=== PATIENT | female | born 1935 | race Asian ===

== ENCOUNTER → 2018-04-24 08:33 | Outpatient (CLI) | payer MEDICARE, SELFPAY ==
[2018-04-24 12:35] LABS: Absolute Lymphocyte Count 1.39 X10^3/ul (0.83-4.51); Absolute Neutrophil Count 1.8 X10^3/uL (2.0-7.7); Basophil# 0.01 X10^3/uL; Basophil% 0.3 % (0-1); Eosinophil# 0.07 X10^3/uL; Hematocrit 42.3 % (37-47); Hemoglobin 14.5 g/dl (12.0-15.0); Lymphocyte # 1.39 X10^3/ul (4.0); Lymphocyte % 39.3 % (19-41); Mean Corp Hgb Conc 34.3 g/gl (32-36); Mean Corpuscular Hgb 31.2 pg (27.0-32.0); Mean Platelet Vol. 10.9 fl (6.2-12.0); Monocyte# 0.25 X10^3/uL; Monocyte% 7.1 % (0-10); Neutrophil # 1.81 X10^3/uL (2.7-7.7); Platelet Count 270 K/mm3 (150-450); RBC Distribution Width CV 13.8 % (11.6-14.6); RBC Distribution Width SD 45.5 fl (35.1-43.9); Red Blood Count 4.65 M/mm3 (4.2-5.4); White Blood Count 3.5 K/mm3 (4.4-11.0)
[2018-04-24 12:37] LABS: POSITIVE COUNT NO; POSITIVE DIFFERENTIAL NO; POSITIVE MORPHOLOGY NO
[2018-04-24 12:54] LABS: ALB/GLOB Ratio 0.9 RATIO (0.9-2.4); AST(SGOT) 16 U/L (15-37); Alanine Aminotransfer ALT/SGPT 26 U/L (13-56); Albumin, Serum 3.5 g/dL (3.2-5.0); Alkaline Phosphatase 77 U/L (45-117); Anion Gap 9 (5-15); BUN 19 mg/dL (7-18); BUN/Creat Ratio 27.2 RATIO (10-20); Chloride 107 mmol/L (98-107); EST Glomerular Filtration Rate 85 mL/min (>60); Est Glom Filt Rate - Afr Amer 103 mL/min (>60); Globulin 3.7 g/dL (2.2-4.2); Glucose 91 mg/dL (74-106); Protein, Total 7.2 g/dL (6.4-8.2); Sodium Level 141 mmol/L (136-145); Thyroid Stim Hormone (TSH) 2.58 uIU/mL (0.358-3.74)
== END ==
PROVIDERS: Family Provider Family Medicine Geriatric Medicine; PCP Family Medicine Geriatric Medicine; Visit Provider Family Medicine Geriatric Medicine
DX: E55.9 Vitamin D deficiency, unspecified (principal); I10 Essential (primary) hypertension
CPT/HCPCS: 36415; 80053; 82306; 84443; 85025

== ENCOUNTER → 2019-04-25 | Outpatient (CLI) | payer MEDICARE, SELFPAY ==
[2019-04-25 12:47] LABS: Absolute Neutrophil Count 2.2 X10^3/uL (2.0-7.7); Basophil# 0.01 X10^3/uL; Basophil% 0.2 % (0-1); Eosinophil# 0.04 X10^3/uL; Hematocrit 42.3 % (37-47); Hemoglobin 14.4 g/dl (12.0-15.0); Lymphocyte % 38.8 % (19-41); Mean Corpuscular Hgb 30.5 pg (27.0-32.0); Mean Corpuscular Volume 89.6 fL (81-99); Monocyte# 0.28 X10^3/uL; Monocyte% 6.8 % (0-10); Neutrophil # 2.18 X10^3/uL (2.7-7.7); Platelet Count 217 K/mm3 (150-450); RBC Distribution Width SD 45.4 fl (35.1-43.9); Red Blood Count 4.72 M/mm3 (4.2-5.4); White Blood Count 4.1 K/mm3 (4.4-11.0)
[2019-04-25 12:54] LABS: POSITIVE COUNT NO; POSITIVE DIFFERENTIAL NO; POSITIVE MORPHOLOGY NO
[2019-04-25 13:00] LABS: Vitamin D,25 Hydroxy 27.4 ng/mL (29.95-100.01)
[2019-04-25 13:17] LABS: ALB/GLOB Ratio 1.1 RATIO (0.9-2.4); AST(SGOT) 21 U/L (15-37); Alanine Aminotransfer ALT/SGPT 23 U/L (13-56); Albumin, Serum 3.5 g/dL (3.2-5.0); Alkaline Phosphatase 67 U/L (45-117); Anion Gap 6 (5-15); BUN 18 mg/dL (7-18); BUN/Creat Ratio 25.2 RATIO (10-20); Chloride 106 mmol/L (98-107); Creatinine, Serum 0.72 mg/dL (0.55-1.02); EST Glomerular Filtration Rate 83 mL/min (>60); Est Glom Filt Rate - Afr Amer 100 mL/min (>60); Globulin 3.1 g/dL (2.2-4.2); Glucose 115 mg/dL (74-106); Potassium 3.7 mmol/L (3.5-5.1); Protein, Total 6.6 g/dL (6.4-8.2); Sodium Level 138 mmol/L (136-145); Thyroid Stim Hormone (TSH) 2.15 uIU/mL (0.358-3.74)
== END | disposition home or self-care (01) ==
LOC: POLAB3 10:54
PROVIDERS: Family Provider Family Medicine Geriatric Medicine; PCP Family Medicine Geriatric Medicine; Visit Provider Family Medicine Geriatric Medicine
DX: E55.9 Vitamin D deficiency, unspecified (principal); I10 Essential (primary) hypertension
CPT/HCPCS: 36415; 80053; 82306; 84443; 85025

== ENCOUNTER → 2019-10-02 15:44 | Outpatient (CLI) | payer MEDICARE, SELFPAY | PROVIDERS: Family Provider Family Medicine Geriatric Medicine; PCP Family Medicine Geriatric Medicine; Referring Provider Family Medicine Geriatric Medicine; Visit Provider Family Medicine Geriatric Medicine | DX: R50.9 Fever, unspecified (principal) | CPT/HCPCS: 87633 ==

== ENCOUNTER → 2020-04-29 11:38 | Outpatient (CLI) | payer MEDICARE, SELFPAY ==
[2020-04-29 12:30] LABS: Absolute Lymphocyte Count 1.97 X10^3/uL (0.83-4.51); Absolute Neutrophil Count 2.2 X10^3/uL (2.0-7.7); Basophil# 0.03 X10^3/uL; Basophil% 0.6 % (0-1); Eosinophil# 0.04 X10^3/uL; Eosinophils% 0.9 % (0-5); Hematocrit 42.9 % (37-47); Hemoglobin 14.3 g/dL (12.0-15.0); Lymphocyte # 1.97 X10^3/ul (4.0); Lymphocyte % 42.6 % (19-41); Mean Corp Hgb Conc 33.3 g/dL (32-36); Mean Corpuscular Hgb 31.3 pg (27.0-32.0); Mean Corpuscular Volume 93.9 fL (81-99); Mean Platelet Vol. 11.1 fl (6.2-12.0); Monocyte# 0.35 X10^3/uL; Monocyte% 7.6 % (0-10); NRBC Flagged by Analyzer 0 % (0-5); Neutrophil # 2.21 X10^3/uL (2.7-7.7); Neutrophil % 47.9 % (47-70); Platelet Count 217 K/mm3 (150-450); RBC Distribution Width CV 13.5 % (11.6-14.6); RBC Distribution Width SD 45.4 fl (35.1-43.9); Red Blood Count 4.57 M/mm3 (4.2-5.4); White Blood Count 4.6 K/mm3 (4.4-11.0)
[2020-04-29 12:47] LABS: Vitamin D,25 Hydroxy 31.8 ng/mL
[2020-04-29 12:54] LABS: AST(SGOT) 17 U/L (15-37); Alanine Aminotransfer ALT/SGPT 23 U/L (13-56); Albumin, Serum 3.6 g/dL (3.2-5.0); Alkaline Phosphatase 76 U/L (45-117); Anion Gap 8 (5-15); BUN 20 mg/dL (7-18); BUN/Creat Ratio 30.5 RATIO (10-20); Calcium,Total 9.2 mg/dL (8.5-10.1); Chloride 104 mmol/L (98-107); Creatinine, Serum 0.66 mg/dL (0.55-1.02); EST Glomerular Filtration Rate 91 mL/min (>60); Est Glom Filt Rate - Afr Amer 110 mL/min (>60); Globulin 3.5 g/dL (2.2-4.2); Glucose 111 mg/dL (74-106); Potassium 3.9 mmol/L (3.5-5.1); Protein, Total 7.1 g/dL (6.4-8.2); Sodium Level 140 mmol/L (136-145); Thyroid Stim Hormone (TSH) 2.56 uIU/mL (0.358-3.74)
== END ==
PROVIDERS: PCP Family Medicine Geriatric Medicine; Visit Provider Family Medicine Geriatric Medicine
DX: I10 Essential (primary) hypertension (principal); E55.9 Vitamin D deficiency, unspecified
CPT/HCPCS: 36415; 80053; 82306; 84443; 85025

== ENCOUNTER → 2021-05-27 10:12 | Outpatient (CLI) | payer MEDICARE, SELFPAY ==
[2021-05-27 12:39] LABS: Absolute Lymphocyte Count 1.49 X10^3/uL (0.83-4.51); Absolute Neutrophil Count 2.4 X10^3/uL (2.0-7.7); Basophil# 0.01 X10^3/uL; Basophil% 0.2 % (0-1); Eosinophil# 0.06 X10^3/uL; Eosinophils% 1.4 % (0-5); Hematocrit 46.7 % (37-47); Hemoglobin 15.4 g/dL (12.0-15.0); Lymphocyte # 1.49 X10^3/ul (0.83-4.51); Mean Corpuscular Hgb 30.5 pg (27.0-32.0); Mean Corpuscular Volume 92.5 fL (81-99); Mean Platelet Vol. 10.4 fl (6.2-12.0); NRBC Flagged by Analyzer 0 % (0-5); Neutrophil # 2.39 X10^3/uL (2.7-7.7); Neutrophil % 56.2 % (47-70); Platelet Count 260 K/mm3 (150-450); RBC Distribution Width CV 13.9 % (11.6-14.6); Red Blood Count 5.05 M/mm3 (4.2-5.4); White Blood Count 4.3 K/mm3 (4.4-11.0)
[2021-05-27 12:54] LABS: Vitamin D,25 Hydroxy 46.3 ng/mL
[2021-05-27 13:02] LABS: ALB/GLOB Ratio 1.1 RATIO (0.9-2.4); AST(SGOT) 16 U/L (15-37); Alanine Aminotransfer ALT/SGPT 31 U/L (13-56); Albumin, Serum 3.8 g/dL (3.2-5.0); Alkaline Phosphatase 68 U/L (45-117); Anion Gap 8 (5-15); BUN 20 mg/dL (7-18); BUN/Creat Ratio 26.5 RATIO (10-20); Calcium,Total 9.2 mg/dL (8.5-10.1); Chloride 104 mmol/L (98-107); Creatinine, Serum 0.76 mg/dL (0.55-1.02); EST Glomerular Filtration Rate 77 mL/min (>60); Est Glom Filt Rate - Afr Amer 93 mL/min (>60); Globulin 3.4 g/dL (2.2-4.2); Glucose 115 mg/dL (74-106); Potassium 3.5 mmol/L (3.5-5.1); Protein, Total 7.2 g/dL (6.4-8.2); Sodium Level 140 mmol/L (136-145); Thyroid Stim Hormone (TSH) 2.95 uIU/mL (0.358-3.74)
== END ==
PROVIDERS: PCP Family Medicine Geriatric Medicine; Visit Provider Family Medicine Geriatric Medicine
DX: I10 Essential (primary) hypertension (principal); E55.9 Vitamin D deficiency, unspecified
CPT/HCPCS: 36415; 80053; 82306; 84443; 85025

== ENCOUNTER 2022-03-26 13:38 | Emergency (ER) | payer MEDICARE, SELFPAY ==
[2022-03-26 13:39] VITALS: BP 194/78; PULSE 63; RESP 15; TEMP 36.4; O2SAT 97; BMI 27.3
--- NOTE | 2022-03-26 13:50 | EKG12_ITS ---
Test Reason : DIZZINESS Blood Pressure : / mmHG Vent. Rate : 060 BPM Atrial Rate : 060 BPM P-R Int : 178 ms QRS Dur : 082 ms QT Int : 442 ms P-R-T Axes : 057 047 064 degrees QTc Int : 442 ms Normal sinus rhythm Nonspecific ST and T wave abnormality Abnormal ECG Confirmed by SIMA PALOMINO, WILBER ([id number]), design editor KEVIN CORTES ([id number]) on 03/29/2022 1:00:42 PM Referred By: Confirmed By:WILBER GAO MD
--- NOTE | 2022-03-26 13:54 | CT_ITS ---
STUDY: CT BRAIN WITHOUT CONTRAST REASON FOR EXAM: Female, 86 years old. Vertigo RADIATION DOSAGE (If Supplied By Facility): CTDIvol = ( 47.06 ) mGy, DLP = ( 819.74 ) mGycm TECHNIQUE: Transaxial CT imaging of the brain was performed without administration of intravenous contrast material. Individualized dose optimization techniques were used for this CT. COMPARISON: No relevant priors. FINDINGS: Normal soft tissue structures. Normal calvarium. There is mild cerebral atrophy with widening of the extra-axial spaces and ventricular dilatation. Normal white matter tracts of the cerebral hemispheres. There are small punctate calcifications of the basal ganglia which are seen in the aging brain as a normal variant. Normal brainstem. Normal cerebellum. There is no intracranial hemorrhage. There are no findings of an acute ischemic infarction. Atherosclerotic plaque formation of the cavernous portions of the internal carotid arteries bilaterally. Normal visualized paranasal sinuses. CT/Brain/Head without Contrast IMPRESSION: Chronic involutional changes of the brain. Electronically Signed: Pop Mann MD at 16:13 EDT ,
--- NOTE | 2022-03-26 13:55 | EDS_ITS ---
HPI <JANELLE Orta - Last Filed: 03/26/22 16:23> History of Present Illness Chief Complaint: Dizziness Narrative Narrative: 86-year-old female with history of hypertension presents to the emergency department with complaints of dizziness after waking up this morning. Patient states that she felt dizzy, unsteady, it was better when she closed her eyes. Due to this, she felt nauseous and did not take her daily blood pressure medicines. Patient did arrive by EMS, patient denies any weakness to her upper or lower extremities. She denies any actual vomiting, fever or chills. Denies any injury. [facility] <JANELLE Orta - Last Filed: 03/26/22 16:23> [facility] Medical History (Updated 03/26/22 @ 16:19 by JANELLE Orta) HTN (hypertension) Home Medications cholecalciferol (vitamin D3) [Vitamin D3] 25 mcg PO DAILY 03/26/22 [History Last Taken Unknown] hydrochlorothiazide 25 mg PO DAILY 03/26/22 [History Last Taken Unknown] meclizine [Antivert] 25 mg PO DAILY PRN #14 tab 03/26/22 [Rx Last Taken Unknown] ondansetron 4 mg PO Q8H PRN #10 tab 03/26/22 [Rx Last Taken Unknown] ramipril 10 mg PO DAILY 03/26/22 [History Last Taken Unknown] Allergy/AdvReac Type Severity Reaction Status Date / Time No Known Allergies Allergy Verified 03/26/22 13:39 Social History Smoking Status: Never smoker ROS <JANELLE Orta - Last Filed: 03/26/22 16:23> ROS ED ROS Narrative Constitutional: Negative for fever, chills, weight loss, weakness Eyes: Negative for vision loss, vision change, double vision ENT: Negative for any sore throat, ear pain, congestion Cardiovascular: Negative for any chest pain, tightness, palpitations Respiratory: Negative for any cough, sputum production, hemoptysis, dyspnea, dyspnea on exertion, orthopnea Gastrointestinal: Negative for any abdominal pain, nausea, vomiting, diarrhea, constipation, blood in stool, blood in vomit : Negative for any urinary frequency, dysuria, retention, blood in urine Muscle skeletal: Negative for any muscle joint pain, stiffness, myalgias, arthralgias, neck pain, back pain Neurological: Negative for any headache, syncope, numbness or tingling. Positive for a feeling of dizziness, unsteady Skin: Negative for any rashes, lumps, itching, abrasions, lacerations Psychiatric: Negative for any depression, anxiety, stress, suicidal ideation, homicidal ideation Hematologic: Negative for any easy bruising, excessive bruising, easy bleeding Allergies: Negative for any eczema, hives, rash EXAM <JANELLE Orta - Last Filed: 03/26/22 16:23> Physical Exam Narrative Exam Narrative: Vital signs reviewed. Blood pressure 197/74. Patient is alert and oriented. Patient closes her eyes stating any position change of her head makes her dizziness worse. HEET: Head normocephalic atraumatic, TMs clear bilaterally. Posterior pharynx is clear, moist mucous membranes. Nares clear bilaterally. Neck: Supple with no lymphadenopathy or tenderness. No signs of meningismus, negative jolt sign. Cardiac: Regular rate and rhythm no murmurs gallops or rubs, equal peripheral pulses bilaterally. Respiratory: Lungs clear to auscultation bilaterally. No chest tenderness. Abdomen: Soft, nontender, nondistended. No abdominal bruit or pulsatile masses. No hepatosplenomegaly Extremities: No peripheral edema, no signs of gross trauma or deformity. Active full range of motion of all extremities. Neuro: Cranial nerves II through XII intact, no focal neurological deficits. NIH score 0. [place]-Hallpike maneuver was completed, patient did have horizontal nystagmus Skin: Clean dry and intact with no rash, purpura, petechiae, vesicles or pustules. Backs/flank: No CVA tenderness, no midline spinal tenderness, no deformity. Psych: Normal mood and affect. No SI, HI or acute psychosis. Const Vital Signs: 03/26/22 13:39 03/26/22 14:59 03/26/22 16:13 Temperature 97.5 F L Temperature Source Temporal Pulse Rate 63 62 67 Respiratory Rate 15 16 14 Blood Pressure 194/78 H 175/68 H 187/84 H Blood Pressure Mean 116 103 118 Pulse Ox 97 94 94 Oxygen Delivery Method Room Air Room Air Room Air Positive well nourished and well developed General Appearance ED: well developed <Dr. Candido Richard MD - Last Filed: 03/26/22 16:18> Physical Exam Const Vital Signs: 03/26/22 13:39 03/26/22 14:59 03/26/22 16:13 Temperature 97.5 F L Temperature Source Temporal Pulse Rate 63 62 67 Respiratory Rate 15 16 14 Blood Pressure 194/78 H 175/68 H 187/84 H Blood Pressure Mean 116 103 118 Pulse Ox 97 94 94 Oxygen Delivery Method Room Air Room Air Room Air [facility] <Rafiq Saucedo NPAlexC - Last Filed: 03/26/22 16:23> [facility] Narrative Medical decision making narrative: Patient appears well, patient appears nontoxic, vital signs are stable. Patient presents to the emergency department with complaints of elevated blood pressure, dizziness of feeling of spinning. Patient's physical examination was consistent with peripheral vertigo. However patient received a CT scan of the brain, basic labs she was given her morning routine blood pressure medicines as well as meclizine and Zofran. She will be reassessed. Patient presents emergency department patient with a feeling of dizziness, nausea. Patient CBC, chemistries were unremarkable. Patient's urinalysis was negative for any infection. Patient's troponin was negative. Patient's EKG was unremarkable. Patient did receive a CT scan of the brain, this was unremarkable. Patient was able to walk around the department with a steady gait. Patient still feels slightly dizzy. Should be given a prescription of Zofran as well as Antivert. Instructed to follow-up outpatient. At this time I do not believe there is any evidence of any CVA, TIA. Patient be diagnosed with benign peripheral positional vertigo. Patient will follow up outpatient strict return for any worsening nausea, vomiting, fever chills. Patient stable for discharge Lab Data Attestation: I reviewed the patient's lab results. Labs: Laboratory Results - last 24 hr 03/26/22 03/26/22 03/26/22 14:00 14:00 14:30 WBC 5.4 RBC 4.73 Hgb 14.7 Hct 43.3 MCV 91.5 MCH 31.1 MCHC 33.9 RDW Std Deviation 45.4 H RDW Coeff of Terry 13.3 Plt Count 221 MPV 10.6 Immature Gran % (Auto) 0.400 Neut % (Auto) 72.6 H Lymph % (Auto) 21.4 Rich % (Auto) 4.6 Eos % (Auto) 0.4 Baso % (Auto) 0.6 Absolute Neuts (auto) 4.0 Absolute Lymphs (auto) 1.16 Nucleated RBC % 0 Sodium 139 Potassium 3.4 L Chloride 106 Carbon Dioxide 26.0 Anion Gap 7 BUN 13 Creatinine 0.55 Estim Creat Clear Calc 28.47 Est GFR (MDRD) Af Amer 134 Est GFR (MDRD) Non-Af 111 BUN/Creatinine Ratio 23.6 H Glucose 145 H Calcium 9.0 Troponin I High Sens 5 Urine Color Yellow Urine Clarity Sl. Cloudy Urine pH 8.0 Ur Specific [place] 1.015 Urine Protein Negative Urine Glucose (UA) Normal Urine Ketones Negative Urine Occult Blood Negative Urine Nitrite Negative Urine Bilirubin Negative Urine Urobilinogen Normal Ur Leukocyte Esterase 25 H Urine RBC 0 SEEN Urine WBC 0-5 SEEN Ur Squamous Epith Cells 0-5 SEEN Amorphous Sediment 1+ Urine Bacteria RARE Urine Mucus 0 SEEN Radiography Diagnostic Testing: Clinical Impression(s) from Imaging Studies Brain CT 03/26/22 13:54 IMPRESSION: Chronic involutional changes of the brain. Electronically Signed: Pop Mann MD at 16:13 EDT , EKG Normal sinus rhythm with a 60 beats: Attestation: I personally reviewed and interpreted this EKG as follows: Comments: Normal sinus rhythm, rate of 60 bpm, [place] interval 178 ms, QRS duration 80 ms, no acute ST elevation, no acute infarct noted <Dr. Candido Richard MD - Last Filed: 03/26/22 16:18> [facility] Narrative Medical decision making narrative: I have personally performed a face to face assessment of the patient and have reviewed the DELISA Note. I performed a substantive portion of the visit including all aspects of the following. My sanchez findings include: History: Patient tells me that about 3 hours after getting up she started to feel nauseated. She states she does not really think now that she was dizzy. She does not think she was unstable. She states it does not bother her now to move her head. It sounds like before she was seen there was a clear vertigo component but she is denying this to me now. She states she just had nausea. No fevers chills vomiting diarrhea or abdominal pain. She does not know why she was nauseated. She has been feeling fine recently. She is overall healthy. She takes vitamins D and medications for high blood pressure. She did not take these because she was nauseated this morning. Nothing really made her symptoms better or worse. Exam: Patient awake alert. When I walk in the room she has her flip phone cell phone open and she is reading items on it. I have her turn her head left right move around she has no symptoms at all. She has a normal neurologic exam. No discoordination. No weakness or sensory changes. I am getting no nystagmus with head motion now. Lungs are clear. Heart is regular. Abdomen is benign. There is no CVA tenderness. No peripheral edema. Medical Decison Making: Patient will have metabolic work-up. Because there is slight change in her story, we will err on the side of caution and get CT of her head also. She will be reassessed after results are back. We will get her her blood pressure meds. She will also get a dose of Zofran. We will also give a dose of meclizine. We have been trying to get results for CT on this patient. We have CT scans on multiple patients that we do not have readings for. I have looked at these images. We are contacting the radiology services. We have done this multiple times now. Evidently it appears as though the images might be read but nobody can access the actual reading. We are trying to get these results faxed to us. We have made multiple calls as have the radiology techs here trying to solve this problem. Lab Data Labs: Laboratory Results - last 24 hr 03/26/22 03/26/22 03/26/22 14:00 14:00 14:30 WBC 5.4 RBC 4.73 Hgb 14.7 Hct 43.3 MCV 91.5 MCH 31.1 MCHC 33.9 RDW Std Deviation 45.4 H RDW Coeff of Terry 13.3 Plt Count 221 MPV 10.6 Immature Gran % (Auto) 0.400 Neut % (Auto) 72.6 H Lymph % (Auto) 21.4 Rich % (Auto) 4.6 Eos % (Auto) 0.4 Baso % (Auto) 0.6 Absolute Neuts (auto) 4.0 Absolute Lymphs (auto) 1.16 Nucleated RBC % 0 Sodium 139 Potassium 3.4 L Chloride 106 Carbon Dioxide 26.0 Anion Gap 7 BUN 13 Creatinine 0.55 Estim Creat Clear Calc 28.47 Est GFR (MDRD) Af Amer 134 Est GFR (MDRD) Non-Af 111 BUN/Creatinine Ratio 23.6 H Glucose 145 H Calcium 9.0 Troponin I High Sens 5 Urine Color Yellow Urine Clarity Sl. Cloudy Urine pH 8.0 Ur Specific [place] 1.015 Urine Protein Negative Urine Glucose (UA) Normal Urine Ketones Negative Urine Occult Blood Negative Urine Nitrite Negative Urine Bilirubin Negative Urine Urobilinogen Normal Ur Leukocyte Esterase 25 H Urine RBC 0 SEEN Urine WBC 0-5 SEEN Ur Squamous Epith Cells 0-5 SEEN Amorphous Sediment 1+ Urine Bacteria RARE Urine Mucus 0 SEEN Radiography Diagnostic Testing: Clinical Impression(s) from Imaging Studies Brain CT 03/26/22 13:54 IMPRESSION: Chronic involutional changes of the brain. Electronically Signed: Pop Mann MD at 16:13 EDT , Discharge Plan Triage Chief Complaint: Dizziness Other Complaint: Nausea/Vomiting ED Midlevel Provider: Rafiq Saucedo ED Provider: Candido Richard Dx/Rx/DC Orders Clinical Impression: Vertigo Instructions: ED BPV Vertigo Prescriptions: New meclizine [Antivert] 25 mg tablet,chewable 25 mg PO DAILY PRN (Reason: dizziness) Qty: 14 RF: 0 ondansetron 4 mg tablet,disintegrating 4 mg PO Q8H PRN (Reason: nausea and vomiting) Qty: 10 RF: 0 No Action hydrochlorothiazide 25 mg Tablet 25 mg PO DAILY RF: 0 ramipril 10 mg Capsule 10 mg PO DAILY RF: 0 cholecalciferol (vitamin D3) [Vitamin D3] 25 mcg (1,000 unit) Tablet,Chewable 25 mcg PO DAILY RF: 0 Primary Care Provider: Sawyer Pickett Chi Referrals: Sawyer Pickett Chi, MD [Primary Care Provider] - Activity Restrictions/Additional Instructions: You are being treated for benign positional vertigo. Please rest today. Use Antivert and nausea medication as needed Print Language: Bulgarian Disposition Disposition: Home, Self Care
[2022-03-26] MEDS: Meclizine HCl 25 MG Tablet PO (14:03)
[2022-03-26] MEDS: Ondansetron 4 MG/2 ML Vial IV (14:03)
[2022-03-26 14:06] LABS: Absolute Lymphocyte Count 1.16 X10^3/uL (0.83-4.51); Basophil# 0.03 X10^3/uL; Basophil% 0.6 % (0-1); Eosinophil# 0.02 X10^3/uL; Eosinophils% 0.4 % (0-5); Hematocrit 43.3 % (37-47); Hemoglobin 14.7 g/dL (12.0-15.0); Lymphocyte # 1.16 X10^3/ul (0.83-4.51); Lymphocyte % 21.4 % (19-41); Mean Corp Hgb Conc 33.9 g/dL (32-36); Mean Corpuscular Hgb 31.1 pg (27.0-32.0); Mean Corpuscular Volume 91.5 fL (81-99); Mean Platelet Vol. 10.6 fl (6.2-12.0); Monocyte# 0.25 X10^3/uL; Monocyte% 4.6 % (0-10); NRBC Flagged by Analyzer 0 % (0-5); Neutrophil # 3.95 X10^3/uL (2.7-7.7); Neutrophil % 72.6 % (47-70); Platelet Count 221 K/mm3 (150-450); RBC Distribution Width CV 13.3 % (11.6-14.6); RBC Distribution Width SD 45.4 fl (35.1-43.9); Red Blood Count 4.73 M/mm3 (4.2-5.4); White Blood Count 5.4 K/mm3 (4.4-11.0)
[2022-03-26 14:22] LABS: Anion Gap 7 (5-15); BUN 13 mg/dL (7-18); BUN/Creat Ratio 23.6 RATIO (10-20); Chloride 106 mmol/L (98-107); Creatinine, Serum 0.55 mg/dL (0.55-1.02); EST Glomerular Filtration Rate 111 mL/min (>60); Est Glom Filt Rate - Afr Amer 134 mL/min (>60); Estimated Creatinine Clearance 28.47 ml/min; Glucose 145 mg/dL (74-106); Potassium 3.4 mmol/L (3.5-5.1); Sodium Level 139 mmol/L (136-145); Troponin-I HS 5 pg/mL (3.0-54.0)
[2022-03-26] MEDS: hydroCHLOROthiazide 25 MG Tablet PO (14:29)
[2022-03-26] MEDS: Ramipril 10 MG Capsule PO (14:29)
[2022-03-26 14:38] LABS: Mucous, Urine 0 SEEN /hpf (<or=2+); Red Blood Cells-Urine 0 SEEN /hpf (0-5)
[2022-03-26 14:40] LABS: Color, Urine Yellow (Yellow); Glucose, Dipstick Normal (Normal); Ketone-Dipstick Negative (Negative); Leukocyte Esterase-Dipstick 25 /ul (Negative); Nitrite-Dipstick Negative (Negative); Occult Blood-Urine Negative /ul (Negative); Protein-Dipstick Negative (Negative); Specific Gravity, Urine 1.015 (1.002-1.030); Urine Bilirubin Dipstick Negative (Negative); Urine Clarity Sl. Cloudy (Clear); Urine Urobilinogen Normal (Normal)
[2022-03-26 14:46] LABS: Amorphous Sediment 1+; Bacteria RARE /hpf (None Seen); Squamous Epithelial Cells - UA 0-5 SEEN /hpf (5-10); White Blood Cells 0-5 SEEN /hpf (0-5)
[2022-03-26 14:59] VITALS: BP 175/68; PULSE 62; RESP 16; O2SAT 94
[2022-03-26 16:13] VITALS: BP 187/84; PULSE 67; RESP 14; O2SAT 94
[2022-03-26 16:51] VITALS: BP 182/79; PULSE 63; RESP 14; O2SAT 95
== END 2022-03-26 16:51 | disposition home or self-care (01) ==
PROVIDERS: Nurse Practitioner; Emergency Provider Emergency Medicine; PCP Family Medicine Geriatric Medicine; Visit Provider Emergency Medicine
DX: R42 Dizziness and giddiness (principal); I10 Essential (primary) hypertension; Z79.899 Other long term (current) drug therapy
CPT/HCPCS: 70450; 80048; 81001; 84484; 85025; 93005; 96374; 99285; J2405

== ENCOUNTER → 2022-06-07 | Outpatient (CLI) | payer MEDICARE, SELFPAY ==
[2022-06-07 11:36] LABS: Absolute Lymphocyte Count 1.52 X10^3/uL (0.83-4.51); Basophil# 0.01 X10^3/uL; Basophil% 0.2 % (0-1); Eosinophil# 0.03 X10^3/uL; Eosinophils% 0.6 % (0-5); Hematocrit 45.9 % (37-47); Hemoglobin 15.2 g/dL (12.0-15.0); Lymphocyte # 1.52 X10^3/ul (0.83-4.51); Lymphocyte % 31.3 % (19-41); Mean Corp Hgb Conc 33.1 g/dL (32-36); Mean Corpuscular Hgb 30.6 pg (27.0-32.0); Mean Corpuscular Volume 92.5 fL (81-99); Mean Platelet Vol. 11.1 fl (6.2-12.0); Monocyte% 6.2 % (0-10); NRBC Flagged by Analyzer 0 % (0-5); Neutrophil # 2.97 X10^3/uL (2.7-7.7); Neutrophil % 61.1 % (47-70); Platelet Count 229 K/mm3 (150-450); RBC Distribution Width CV 13.5 % (11.6-14.6); RBC Distribution Width SD 45.9 fl (35.1-43.9); Red Blood Count 4.96 M/mm3 (4.2-5.4); White Blood Count 4.9 K/mm3 (4.4-11.0)
[2022-06-07 12:33] LABS: Vitamin D,25 Hydroxy 45.6 ng/mL
[2022-06-07 13:11] LABS: AST(SGOT) 17 U/L (15-37); Alanine Aminotransfer ALT/SGPT 25 U/L (13-56); Albumin, Serum 3.6 g/dL (3.2-5.0); Alkaline Phosphatase 70 U/L (45-117); Anion Gap 7 (5-15); BUN 17 mg/dL (7-18); Chloride 106 mmol/L (98-107); Creatinine, Serum 0.68 mg/dL (0.55-1.02); EST Glomerular Filtration Rate 87 mL/min (>60); Est Glom Filt Rate - Afr Amer 105 mL/min (>60); Globulin 3.6 g/dL (2.2-4.2); Glucose 105 mg/dL (74-106); Potassium 3.4 mmol/L (3.5-5.1); Protein, Total 7.2 g/dL (6.4-8.2); Sodium Level 140 mmol/L (136-145); Thyroid Stim Hormone (TSH) 1.99 uIU/mL (0.358-3.74)
== END | disposition home or self-care (01) ==
PROVIDERS: PCP Family Medicine Geriatric Medicine; Referring Provider Family Medicine Geriatric Medicine; Visit Provider Family Medicine Geriatric Medicine
DX: I10 Essential (primary) hypertension (principal); E55.9 Vitamin D deficiency, unspecified
CPT/HCPCS: 36415; 80053; 82306; 84443; 85025

== ENCOUNTER → 2023-01-26 | Outpatient (CLI) | payer MEDICARE, SELFPAY ==
[2023-01-26 13:29] LABS: Absolute Lymphocyte Count 1.95 X10^3/uL (0.83-4.51); Absolute Neutrophil Count 3.4 X10^3/uL (2.0-7.7); Basophil# 0.02 X10^3/uL; Basophil% 0.3 % (0-1); Eosinophil# 0.03 X10^3/uL; Eosinophils% 0.5 % (0-5); Hematocrit 48.1 % (37-47); Lymphocyte # 1.95 X10^3/ul (0.83-4.51); Lymphocyte % 33.8 % (19-41); Mean Corp Hgb Conc 33.3 g/dL (32-36); Mean Corpuscular Hgb 30.6 pg (27.0-32.0); Mean Platelet Vol. 11.1 fl (6.2-12.0); Monocyte# 0.35 X10^3/uL; Monocyte% 6.1 % (0-10); NRBC Flagged by Analyzer 0 % (0-5); Neutrophil # 3.41 X10^3/uL (2.7-7.7); Neutrophil % 59.1 % (47-70); Platelet Count 264 K/mm3 (150-450); RBC Distribution Width CV 13.3 % (11.6-14.6); RBC Distribution Width SD 45.1 fl (35.1-43.9); Red Blood Count 5.23 M/mm3 (4.2-5.4); White Blood Count 5.8 K/mm3 (4.4-11.0)
[2023-01-26 13:58] LABS: AST(SGOT) 17 U/L (15-37); Alanine Aminotransfer ALT/SGPT 26 U/L (13-56); Albumin, Serum 3.6 g/dL (3.2-5.0); Alkaline Phosphatase 84 U/L (45-117); Anion Gap 10 (5-15); BUN 16 mg/dL (7-18); BUN/Creat Ratio 22.4 RATIO (10-20); Calcium,Total 10.8 mg/dL (8.5-10.1); Chloride 102 mmol/L (98-107); Creatinine, Serum 0.71 mg/dL (0.55-1.02); EST Glomerular Filtration Rate 82 mL/min (>60); Est Glom Filt Rate - Afr Amer 99 mL/min (>60); Globulin 3.7 g/dL (2.2-4.2); Glucose 178 mg/dL (74-106); Potassium 3.2 mmol/L (3.5-5.1); Protein, Total 7.3 g/dL (6.4-8.2); Sodium Level 137 mmol/L (136-145); Syphilis Antibodies Non-reactive; Thyroid Stim Hormone (TSH) 3.17 uIU/mL (0.358-3.74); Vitamin B12 242 pg/mL (211-911)
== END | disposition home or self-care (01) ==
PROVIDERS: PCP Family Medicine Geriatric Medicine; Visit Provider Family Medicine Geriatric Medicine
DX: I10 Essential (primary) hypertension (principal)
CPT/HCPCS: 36415; 80053; 82607; 82746; 84443; 85025; 86780

== ENCOUNTER → 2023-02-05 | Outpatient (CLI) | payer MEDICARE, SELFPAY ==
[2023-02-05 10:38] LABS: Homocysteine 4.4 umol/L (3.2-10.7)
[2023-02-05 11:07] LABS: ALB/GLOB Ratio 1.1 RATIO (0.9-2.4); AST(SGOT) 14 U/L (15-37); Alanine Aminotransfer ALT/SGPT 21 U/L (13-56); Albumin, Serum 3.5 g/dL (3.2-5.0); Alkaline Phosphatase 84 U/L (45-117); Anion Gap 5 (5-15); BUN 18 mg/dL (7-18); BUN/Creat Ratio 27.4 RATIO (10-20); Calcium,Total 8.8 mg/dL (8.5-10.1); Chloride 112 mmol/L (98-107); Creatinine, Serum 0.66 mg/dL (0.55-1.02); EST Glomerular Filtration Rate 90 mL/min (>60); Est Glom Filt Rate - Afr Amer 109 mL/min (>60); Globulin 3.2 g/dL (2.2-4.2); Glucose 134 mg/dL (74-106); Potassium 3.8 mmol/L (3.5-5.1); Protein, Total 6.7 g/dL (6.4-8.2); Sodium Level 139 mmol/L (136-145)
[2023-02-05 12:34] LABS: Hemoglobin A1c 6.5 % (3.8-5.6)
== END | disposition home or self-care (01) ==
LOC: LAB 09:36
PROVIDERS: PCP Family Medicine Geriatric Medicine; Referring Provider Family Medicine Geriatric Medicine; Visit Provider Family Medicine Geriatric Medicine
DX: E53.8 Deficiency of other specified B group vitamins (principal); E72.11 Homocystinuria; R73.9 Hyperglycemia, unspecified; E87.6 Hypokalemia
CPT/HCPCS: 36415; 80053; 83036; 83090

== ENCOUNTER → 2023-06-29 | Outpatient (CLI) | payer MEDICARE, SELFPAY ==
[2023-06-29 18:19] LABS: Absolute Lymphocyte Count 1.84 X10^3/uL (0.83-4.51); Absolute Neutrophil Count 2.2 X10^3/uL (2.0-7.7); Basophil# 0.02 X10^3/uL; Basophil% 0.5 % (0-1); Eosinophil# 0.05 X10^3/uL; Eosinophils% 1.1 % (0-5); Hematocrit 41.7 % (37-47); Hemoglobin 14.1 g/dL (12.0-15.0); Lymphocyte # 1.84 X10^3/ul (0.83-4.51); Lymphocyte % 41.8 % (19-41); Mean Corp Hgb Conc 33.8 g/dL (32-36); Mean Corpuscular Hgb 31.1 pg (27.0-32.0); Mean Corpuscular Volume 92.1 fL (81-99); Mean Platelet Vol. 10.7 fl (6.2-12.0); Monocyte# 0.25 X10^3/uL; Monocyte% 5.7 % (0-10); NRBC Flagged by Analyzer 0 % (0-5); Neutrophil # 2.23 X10^3/uL (2.7-7.7); Neutrophil % 50.7 % (47-70); Platelet Count 225 K/mm3 (150-450); RBC Distribution Width CV 13.3 % (11.6-14.6); RBC Distribution Width SD 45.1 fl (35.1-43.9); Red Blood Count 4.53 M/mm3 (4.2-5.4); White Blood Count 4.4 K/mm3 (4.4-11.0)
[2023-06-29 18:29] LABS: Vitamin D,25 Hydroxy 37.1 ng/mL
[2023-06-29 18:48] LABS: AST(SGOT) 17 U/L (15-37); Alanine Aminotransfer ALT/SGPT 25 U/L (13-56); Albumin, Serum 3.3 g/dL (3.2-5.0); Alkaline Phosphatase 87 U/L (45-117); Anion Gap 7 (5-15); BUN 15 mg/dL (7-18); BUN/Creat Ratio 23.3 RATIO (10-20); Calcium,Total 8.9 mg/dL (8.5-10.1); Chloride 109 mmol/L (98-107); Creatinine, Serum 0.64 mg/dL (0.55-1.02); EST Glomerular Filtration Rate 92 mL/min (>60); Est Glom Filt Rate - Afr Amer 112 mL/min (>60); Globulin 3.4 g/dL (2.2-4.2); Glucose 108 mg/dL (74-106); Potassium 3.7 mmol/L (3.5-5.1); Protein, Total 6.7 g/dL (6.4-8.2); Sodium Level 141 mmol/L (136-145); Thyroid Stim Hormone (TSH) 1.52 uIU/mL (0.358-3.74)
== END | disposition home or self-care (01) ==
LOC: POLAB3 16:28
PROVIDERS: PCP Family Medicine Geriatric Medicine; Visit Provider Family Medicine Geriatric Medicine
DX: I10 Essential (primary) hypertension (principal); E55.9 Vitamin D deficiency, unspecified
CPT/HCPCS: 36415; 80053; 82306; 84443; 85025

== ENCOUNTER → 2023-12-28 | Outpatient (CLI) | payer MEDICARE, BC, SELFPAY ==
[2023-12-28 17:32] LABS: Absolute Lymphocyte Count 1.93 X10^3/uL (0.83-4.51); Absolute Neutrophil Count 2.8 X10^3/uL (2.0-7.7); Basophil# 0.03 X10^3/uL; Basophil% 0.6 % (0-1); Eosinophil# 0.03 X10^3/uL; Eosinophils% 0.6 % (0-5); Hematocrit 41.9 % (37-47); Lymphocyte # 1.93 X10^3/ul (0.83-4.51); Lymphocyte % 37.4 % (19-41); Mean Corp Hgb Conc 33.4 g/dL (32-36); Mean Corpuscular Hgb 29.9 pg (27.0-32.0); Mean Corpuscular Volume 89.5 fL (81-99); Mean Platelet Vol. 10.5 fl (6.2-12.0); Monocyte# 0.33 X10^3/uL; Monocyte% 6.4 % (0-10); NRBC Flagged by Analyzer 0 % (0-5); Neutrophil # 2.83 X10^3/uL (2.7-7.7); Neutrophil % 54.8 % (47-70); Platelet Count 244 K/mm3 (150-450); RBC Distribution Width CV 13.6 % (11.6-14.6); Red Blood Count 4.68 M/mm3 (4.2-5.4); White Blood Count 5.2 K/mm3 (4.4-11.0)
[2023-12-28 17:52] LABS: Vitamin D,25 Hydroxy 32.4 ng/mL
[2023-12-28 18:22] LABS: ALB/GLOB Ratio 1.1 RATIO (0.9-2.4); AST(SGOT) 20 U/L (15-37); Alanine Aminotransfer ALT/SGPT 28 U/L (13-56); Albumin, Serum 3.6 g/dL (3.2-5.0); Alkaline Phosphatase 80 U/L (45-117); Anion Gap 6 (5-15); BUN 12 mg/dL (7-18); BUN/Creat Ratio 18.2 RATIO (10-20); Calcium,Total 9.1 mg/dL (8.5-10.1); Chloride 109 mmol/L (98-107); Creatinine, Serum 0.66 mg/dL (0.55-1.02); EST Glomerular Filtration Rate 90 mL/min (>60); Est Glom Filt Rate - Afr Amer 108 mL/min (>60); Globulin 3.3 g/dL (2.2-4.2); Glucose 108 mg/dL (74-106); Potassium 3.7 mmol/L (3.5-5.1); Protein, Total 6.9 g/dL (6.4-8.2); Sodium Level 140 mmol/L (136-145); Thyroid Stim Hormone (TSH) 1.56 uIU/mL (0.358-3.74)
--- OUTSIDE RECORDS SUMMARY | 2023-12-28 20:45 | XMS RPT_ITS | CCD ---
Author Name Unknown Address [address] [place] [address] Organization [facility] Care Team Providers Care [place] Supervisor Name Role Phone Shell, Smiley Chi Primary Care Provider SHELL, SMILEY CHI Primary Care Unavailable RACHELINE Referring Unavailable Shell, Smiley Chi Primary Care Provider SHELL, SMILEY CHI Primary Care Unavailable RACHELINE Referring Unavailable RACHMARAL Attending Unavailable SHELL, SMILEY CHI Primary Care Unavailable KESHA ZAZUETA Attending Unavailable RACH MARAL Referring Unavailable SHELL, SMILEY CHI Primary Care Unavailable MARAL NGUYEN Attending Unavailable MIKALA ALMEIDA Attending Unavailabl e SHELL, SMILEY CHI Primary Care Unavailable Allergies Allergy Classification Reported Allergen(s) Allergy Type Date of Onset Reaction(s) Facility (9 sources) Seasonal allergy; Translations: [SEASONAL ALLERGIES] Allergy to substance 8 Other: See Comments [facility] Medications Completed/Discontinued Medications Medication Drug Class(es) Dates Sig (Normalized) Sig (Original) amLODIPine 5 mg oral tablet (7 sources) Dihydropyridine Calcium Channel Anthony Start: 02-22-2023 take 1 tablet by mouth once daily at bedtime amLODIPine (NORVASC) 5 mg tablet Take 5 mg by mouth daily at bedtime. 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] Onset: 08-17-2023 Chronic Essential hypertension (1 source) Hypertensive disorder; Translations: [Essential (primary) hypertension] 06-17-2023 Chronic Other eye disorders (8 sources) Bilateral vitreous floaters; Translations: [Other vitreous opacities, bilateral] Onset: 02-27-2018 Chronic Other hereditary and degenerative nervous system conditions (1 source) Impaired cognition; Translations: [Mild cognitive impairment, so stated] 06-17-2023 Chronic Residual codes; unclassified (1 source) Restlessness and agitation; Translations: [Restlessness and agitation] 06-17-2023 Chronic Retinal detachments; defects; vascular occlusion; and retinopathy (8 sources) Bilateral drusen of maculae; Translations: [Drusen (degenerative) of macula, bilateral] Onset: 03-07-2023 Chronic Results Test Name Value Interpretation Reference Range Facil ity Vital Signs Date Time Vital Sign Value Performing Clinician Faci lity 03-25-2023 10:21-0400 Body weight 57.61 kg Maral Nguyen MD Work Phone: [facility] 03-25-2023 10:21-0400 Diastolic blood pressure 73 mm[Hg] Maral Nguyen MD Work Phone: [facility] 03-25-2023 10:21-0400 Heart rate 58 /min Maral Ngueyn MD Work Phone: [facility] 03-25-2023 10:21-0400 Systolic blood pressure 184 mm[Hg] Maral Nguyen MD Work Phone: [facility] Encounters Encounter Date Encounter Type Care Provider Facility Start: 07-04-2023 Telephone encounter Shirley Johnny wallace APRNSHEKHAR Work Phone: [facility] Procedures Date Procedure Procedure Detail Performing Clinician Start: 06-09-2023 MRI 3D POST PROCESSING Maral Nguyen MD Work Phone: Start: 06-09-2023 Mri brain brain stem w/o contrast material Maral Nguyen MD Work Phone: Plan of Treatment Date Care Activity Detail Author Start: 06-24-2023 Influenza vaccination INFLUENZA (#1) [facility] Start: 10-24-2022 ADVANCE DIRECTIVE DISCUSSION ADVANCE DIRECTIVE DISCUSSION [facility] Start: 10-24-2022 DEPRESSION ASSESSMENT DEPRESSION ASSESSMENT [facility] Start: 08-16-2009 DIABETES SCREEN DIABETES SCREEN [facility] Start: 1999 PNEUMOCOCCAL: 65+ (1 - PCV) PNEUMOCOCCAL: 65+ (1 - PCV) [facility] Start: 1984 SHINGRIX VACCINE (1 of 2) SHINGRIX VACCINE (1 of 2) [facility] Start: 1953 Urine microalbumin profile DTAP,TDAP,TD (1 - Tdap) [facility] End: 04-23-2024 MRI 3D POST PROCESSING MRI 3D POST PROCESSING Radiology Routine 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] 1 Occurrences starting 03/25/2023 until 04/23/2024 [facility] Work Phone: Payers Date Payer Category Payer Medicare [facility] MEDICARE [facility] MEDICARE ADVANTAGE PPO [id number] 2022-Present [phone] [address] [address] [place] [address] PPO [id number] 2022 Medicare [id number] Social History Date Type Detail Facility Start: 03-07-2023 [facility] Start: 03-07-2023 Tobacco use and exposure Smoke less tobacco non-user [facility] Start: 03-07-2023 End: 03-25-2023 Alcohol intake Current non-drinker of alcohol (finding) [facility] Start: 1935 Sex Assigned At Not on file [facility] Start: 03-25-2023 History of Social function [facility] Start: 03-25-2023 Tobacco use panel [facility] National Score (1-10 0), lower number is lower risk 47 [facility] Clinical Notes 03-07-2023 to 07-04-2023 Telephone Encounter - Jacob Wooten - 07/04/2023 8:44 AM Maral Moore MD - 07/02/2023 10:30 AM EDTTelephone Encounter - Kesha Zazueta, PhD - 06/14/2023 2:39 PM EDTPatient Instructions Note Date & Type Note Facility 07-04-2023 Miscellaneous Notes Summary: APPOINTMENT LVM FOR PATIENT TO CALL SO WE CAN GET HER SCHEDULED FOR A VIRTUAL FOLLOW UP WITH SHIRLEY WOOD IN SEPTEMBER documented in this encounter [facility] 07-02-2023 Note HNO ID: [id number] Author: Maral Nguyen MD Service: ? Author Type: Physician Type: Progress Notes Filed: 07/02/2023 11:08 AM Note Text: [facility]rology Return, [facility], virtual Patient's clinic evaluation was scheduled as a virtual visit using Neocle[employer] platform. I have communicated my name and active licensure. The patient's identity and physical location were verified at the time of this visit. Either the patient or their legal business services sales representative has been informed of the risks and benefits of -- and alternatives to -- treatment through a remote evaluation and consents to proceed with the evaluation remotely. Laura Lopez consented to the video evaluation and its limitations. Based on this evaluation it may be necessary for patient to schedule a follow up evaluation with myself or other providers for formal physical examination and if necessary,other studies. Patient and her daughter Romelia were present for the visit. Larua Lopez is an 87 year old female whom we initially saw on 03/25/2023 for cognitive concerns. Please see our consultation note for detail. PMH of HTN, vit D def Patient presents with progressive cognitive changes for the last year per her daughter, which she disagrees. She does not drive, her son manages he finances, and we do not know if she was taking her medications as directed, as her blood pressure was high when we saw her. MoCA , patient first language is Bengali, [place] Befdside testing concerned for frontal and temporal dysfunction. It also showed amnestic features, with comprehension and visuospatial impairments. 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 At her last visit, we had recommended: Need regular blood pressure measurements Social work consult Encourage regular physical and mental activities. Try to establish a regular daily routine B12 supplements 1000 mcg daily MRI brain with volumetric analysis Neuropsychology testing. Patient [place] language is Bengali Speech pathology for cognitive training MRI brain with volumetric analysis was performed on 06/09/2023. It did not show any acute process. Mild generalized cortical and central atrophy, mild hippocampal volume loss. A few punctate white matter abnormalities consistent with trace chronic small vessel ischemic disease. No significant remote microhemorrhage noted. Total brain volume was at 66th percentile, total hippocampal volume at 17th percentile, temporal lobe 87th, frontal lobe 79th, parietal lobe 99th. Inferior lateral ventricular volume 10th, and lateral ventricular volume 32nd percentile. Questionable Rathke cleft cyst versus pituitary microadenoma, a dedicated sellar imaging can be considered. Neuropsychology study was performed on 06/09/2023. Patient was very frustrated with testing, and requested session to be discontinued. What was completed was performed in an unstandardized manner to calm and redirect her. As such, the study is an incomplete evaluation. Laura Lopez is an 87-year-old female from [facility] with a history of vertigo and hypertension who presents with minimal cognitive concerns. The patient reported that she is functionally independent, though records indicate that there are inefficiencies in management of puller through and she no longer drives. She is also hesitant to allow family members assist with iADLs. The current evaluation was curtailed due to emotional distress and patient request. Results of neuropsychological testing may not be a valid indicator of her current cognitive functioning due to emotional distress at the time of testing and that the testing was not standardized. At face value, isolated tasks of attention, processing speed, divided attention, and visuospatial abilities are within age-based expectations. Memory testing was very poor for learning, retention, and recognition; however, the memory delay was longer than standardized. Overall, memory concerns are suspected based on her memory performances and behavioral observations (I.e. repetitious thoughts, poor recall for conversation from a few minutes prior). Oversight of daily activities is strongly encouraged for safety and differentia diagnosis (I.e. MCI vs. Dementia). A neurodegenerative condition cannot be ruled out. She was started on galatamine at 16 mg daily now by her PCP. They also started on namenda, but she has not started. Her daughter also is concerned if she is taking the medications correctly, and does not want to start namenda yet because it is more complicated for her to titrate up the medication. She will want to make sure there is plan in place to help her with her medication first. Her daughter thinks patient's memory is somewhat better, and she is also trying harder. Patient-Reported No flowsheet data found. Activities of Daily Living (ADL) No flowsheet da (more content not included)... [facility] 07-02-2023 History of Present illness Narrative Images from the original note were not included. Neurology Return, [facility], virtual Patient's clinic evaluation was scheduled as a virtual visit using Neocle[employer] platform. I have communicated my name and active licensure. The patient's identity and physical location were verified at the time of this visit. Either the patient or their legal business services sales representative has been informed of the risks and benefits of -- and alternatives to -- treatment through a remote evaluation and consents to proceed with the evaluation remotely. Laura Lopez consented to the video evaluation and its limitations. Based on this evaluation it may be necessary for patient to schedule a follow up evaluation with myself or other providers for formal physical examination and if necessary,other studies. Patient and her daughter Romelia were present for the visit. Laura Lopez is an 87 year old female whom we initially saw on 03/25/2023 for cognitive concerns. Please see our consultation note for detail. PMH of HTN, vit D def Patient presents with progressive cognitive changes for the last year per her daughter, which she disagrees. She does not drive, her son manages he finances, and we do not know if she was taking her medications as directed, as her blood pressure was high when we saw her. MoCA , patient first language is Bengali, [place]. Befdside testing concerned for frontal and temporal dysfunction. It also showed amnestic features, with comprehension and visuospatial impairments. 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 At her last visit, we had recommended: Need regular blood pressure measurements Social work consult Encourage regular physical and mental activities. Try to establish a regular daily routine B12 supplements 1000 mcg daily MRI brain with volumetric analysis Neuropsychology testing. Patient [place] language is Bengali Speech pathology for cognitive training MRI brain with volumetric analysis was performed on 06/09/2023. It did not show any acute process. Mild generalized cortical and central atrophy, mild hippocampal volume loss. A few punctate white matter abnormalities consistent with trace chronic small vessel ischemic disease. No significant remote microhemorrhage noted. Total brain volume was at 66th percentile, total hippocampal volume at 17th percentile, temporal lobe 87th, frontal lobe 79th, parietal lobe 99th. Inferior lateral ventricular volume 10th, and lateral ventricular volume 32nd percentile. Questionable Rathke cleft cyst versus pituitary microadenoma, a dedicated sellar imaging can be considered. Neuropsychology study was performed on 06/09/2023. Patient was very frustrated with testing, and requested session to be discontinued. What was completed was performed in an unstandardized manner to calm and redirect her. As such, the study is an incomplete evaluation. Laura Lopez is an 87-year-old female from [facility] with a history of vertigo and hypertension who presents with minimal cognitive concerns. The patient reported that she is functionally independent, though records indicate that there are inefficiencies in management of puller through and she no longer drives. She is also hesitant to allow family members assist with iADLs. The current evaluation was curtailed due to emotional distress and patient request. Results of neuropsychological testing may not be a valid indicator of her current cognitive functioning due to emotional distress at the time of testing and that the testing was not standardized. At face value, isolated tasks of attention, processing speed, divided attention, and visuospatial abilities are within age-based expectations. Memory testing was very poor for learning, retention, and recognition; however, the memory delay was longer than standardized. Overall, memory concerns are suspected based on her memory performances and behavioral observations (I.e. repetitious thoughts, poor recall for conversation from a few minutes prior). Oversight of daily activities is strongly encouraged for safety and differentia diagnosis (I.e. MCI vs. Dementia). A neurodegenerative condition cannot be ruled out. She was started on galatamine at 16 mg daily now by her PCP. They also started on namenda, but she has not started. Her daughter also is concerned if she is taking the medications correctly, and does not want to start namenda yet because it is more complicated for her to titrate up the medication. She will want to make sure there is plan in place to help her with her medication first. Her daughter thinks patient's memory is somewhat better, and she is also trying harder. Patient-Reported No flowsheet data found. Activities of Daily Living (ADL) No flowsheet data found. PROMIS-10 No flowsheet data found. PHQ-9 No flowsheet data found.(0-4) minimal depression (5-9) mild depression (10-14) moderate depression (15-19) moderately severe depression (20-27) severe depression Full History of PHQ-9 Scores No flowsheet data found. Sleep No flowsheet data found. No flowsheet data found. Caregiver-Reported No flowsheet data found. Dementia Severity Rating Scale (DSRS) No flowsheet data found. Current medications: Current Outpatient Medications Medication Sig Dispense Refill Galantamine Hydrobromide (RAZADYNE) 16 mg 24 hr capsule Take 16 mg by mouth once daily. POTASSIUM ORAL Take by mouth. Cholecalciferol, Vitamin D3, (VITAMIN D-3) 25 mcg (1,000 unit) chew Take by mouth. amLODIPine (NORVASC) 5 mg tablet Take 5 mg by mouth daily at bedtime. potassium chloride (K-TAB) 10 mEq tablet 20 mEq. ALTACE 10 MG CAP Take by mouth. 0 No current facility-administered medications for this visit. IMPRESSION/REPORT/PLAN: Cognitive dysfunction, NOS, concern for dementia,can not rule out neurodegenerative process, Laura Lopez is an 87 year old female with one year progressive change in cognitive functions, and she now requires assistance on some her her iADLs. 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 Her MRI brain on 06/09/2023 was quite unremarkable. Questionable Rathke cleft cyst versus pituitary microadenoma. She was unable to complete neuropsychology testing due to distress. However from observation, and what was able to be performed, memory impairment is of concern. Believes she meets criteria for dementia, but etiology currently unknown, suspects neurodegenerative process. Her PCP has started her on galantamine, currently at 16 mg daily. She is tolerating, and her daughter thinks she seems better and is also trying. But they have not started on namenda yet due to concern of taking medications correctly. Agree with waiting till medication administration plan in place. We also discussed about the new antiamyloid infusion therapy. Patient will need a diagnosis of Alzheimer disease first. At current time, this is either amyloid PET or CSF biomarkers. The former one is not approved by insurance yet, and CSF will require lumbar puncture for patient. Antiamyloid infusion therapy is for mild/early stage AD, which is not the case for patient based on her bedside testing and what we were able to accomplish from her neuropsychology testing. Risk of medication outweighs any potential benefits in her case. But we encourage patient to allow more help from her children. Recommendation: Family to oversees medical and financial decisions, also oversees medication administration Consider dedicated sellar imaging (MRI with and without contrast) for Rathke cleft cyst versus pituitary microadenoma, defer to her PCP Consider Social work consult Follow up in 3 months with [facility] Please call [phone] for scheduling I spent a total of 50 minutes on the date of the service which included preparing to see the patient, [id number] patient care, completing clinical documentation, obtaining and/or reviewing separately obtained history, counseling and educating the patient/family/caregiver, ordering medications, tests, or procedures, communicating with other HCPs (not separately reported), independently interpreting results (not separately reported), and communicating results to the patient/family/caregiver. This note was partially generated using voice recognition technology system, any errors noted are due to the technology and are unintentional. documented in this encounter [facility] 06-14-2023 Miscellaneous Notes Per family request, spoke with patient's daughter, Tara to discuss that we were unable to complete testing due to patient distress. All questions were addressed. documented in this encounter [facility] 06-09-2023 Note HNO ID: [id number] Author: Kesha Zazueta, PhD Service: ? 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 The assessment consisted of a brief interview with the patient and her daughter (Alexus), neurobehavioral examination, and administration of standardized neuropsychological assessments. This report is intended to be considered as only one part of the comprehensive examination. The results will be communicated to the referring physician via shared electronic medical record and in a consensus conference meeting. Of note, the patient was highly frustrated with testing and requested that the session be discontinued and therefore this is an incomplete evaluation. ? RELEVANT BACKGROUND: Laura Lopez is an 87-year-old female from [facility] who was referred for a neuropsychological evaluation due to cognitive concerns (04/14/23 MoCA= 30). COGNITIVE CONCERNS: The patient adamantly denied cognitive concerns. Per records, the patient's family and neighbors have noticed cognitive changes for approximately 1 year. Activities of Daily Living: [employer]: Independent, per the patient. Records indicate that she no longer cooks and her daughter finds rotten food in her refrigerator regularly. Appointments: Unclear, her daughter made this appointment. Medications: Independent and records indicate that she becomes upset with her daughter when she asks questions about her medication schedule. Finances: Independent per the patient. Driving: Independent per the patient, though records note that she no longer drives. MEDICAL HISTORY: See records for full review. Relevant diagnoses include hypertension and vertigo. Brain MRI (06/09/2023): * No evidence of an acute intracranial process or intracranial mass. * Mild generalized volume loss. * Hippocampal volumes at the 17th percentile when compared to age matched normal controls by quantitative analysis. * Minimal nonspecific white matter disease reflective of chronic microvascular ischemia. * Questionable Rathke cleft cyst versus pituitary microadenoma. * Dedicated sella imaging would be of value. Medication List: Current Outpatient Medications on File Prior to Visit Medication Sig Galantamine Hydrobromide (RAZADYNE) 16 mg 24 hr capsule Take 16 mg by mouth once daily. POTASSIUM ORAL Take by mouth. Cholecalciferol, Vitamin D3, (VITAMIN D-3) 25 mcg (1,000 unit) chew Take by mouth. amLODIPine (NORVASC) 5 mg tablet Take 5 mg by mouth daily at bedtime. potassium chloride (K-TAB) 10 mEq tablet 20 mEq. hydroCHLOROthiazide (HYDRODIURIL, ESIDRIX) 25 mg tablet (Patient not taking: Reported on 03/25/2023) valsartan(DIOVAN 80 MG TAB) Take one(1) tablet daily. (Patient not taking: No sig reported) ALTACE 10 MG CAP Take by mouth. No current facility-administered medications on file prior to visit. PSYCHIATRIC HISTORY: The patient reported that her current mood is fine. She denied current symptoms of anxiety or depression. She endorsed suicidal ideation when she is upset but denied plan or intent. She reported no auditory/visual hallucinations. PSYCHOSOCIAL HISTORY: place: Born in [facility] and then moved to [facility] and then the [facility] in [place]. First language is Bengali. She learned Colombian in 1954. At home, she speaks in Colombian. Colombian is currently dominant. Education: Completed a high school degree and 1 year of college. There were no early attention/learning concerns. 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 Family: The patient is and has 4 children. Living situation: Lives alone. BEHAVIORAL OBSERVATIONS: The patient was accompanied by her daughter, Alexus, though she did not participate in the evaluation. Vision and hearing were adequate for testing purposes. Tremor was observed once during testing, possibly related to emotional factors. Speech was fluent with no observed word-finding problems or paraphasias in casual conversation. Thought processes were tangential and repetitive. Affect appeared distressed during testing. She became tearful during testing and requested the test session be discontinued. Efforts were made to discuss the purpose of testing and resume the testing, which was unsuccessful. Of note, the patient calmed down when discussing other topics. Toward the end of the discussion, we reviewed that this is an incomplete evaluation and she appeared confused and stated, Haven't I done everything you asked? She seemingly did (more content not included)... 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 The assessment consisted of a brief interview with the patient and her daughter (Alexus), neurobehavioral examination, and administration of standardized neuropsychological assessments. This report is intended to be considered as only one part of the comprehensive examination. The results will be communicated to the referring physician via shared electronic medical record and in a consensus conference meeting. Of note, the patient was highly frustrated with testing and requested that the session be discontinued and therefore this is an incomplete evaluation. ? RELEVANT BACKGROUND: Laura Lopez is an 87-year-old female from [facility] who was referred for a neuropsychological evaluation due to cognitive concerns (04/14/23 MoCA= 13/30). COGNITIVE CONCERNS: The patient adamantly denied cognitive concerns. Per records, the patient's family and neighbors have noticed cognitive changes for approximately 1 year. Activities of Daily Living: [employer] Bl[employer]: Independent, per the patient. Records indicate that she no longer cooks and her daughter finds rotten food in her refrigerator regularly. Appointments: Unclear, her daughter made this appointment. Medications: Independent and records indicate that she becomes upset with her daughter when she asks questions about her medication schedule. Finances: Independent per the patient. Driving: Independent per the patient, though records note that she no longer drives. MEDICAL HISTORY: See records for full review. Relevant diagnoses include hypertension and vertigo. Brain MRI (06/09/2023): * No evidence of an acute intracranial process or intracranial mass. * Mild generalized volume loss. * Hippocampal volumes at the 17th percentile when compared to age matched normal controls by quantitative analysis. * Minimal nonspecific white matter disease reflective of chronic microvascular ischemia. * Questionable Rathke cleft cyst versus pituitary microadenoma. * Dedicated sella imaging would be of value. Medication List: Current Outpatient Medications on File Prior to Visit Medication Sig Galantamine Hydrobromide (RAZADYNE) 16 mg 24 hr capsule Take 16 mg by mouth once daily. POTASSIUM ORAL Take by mouth. Cholecalciferol, Vitamin D3, (VITAMIN D-3) 25 mcg (1,000 unit) chew Take by mouth. amLODIPine (NORVASC) 5 mg tablet Take 5 mg by mouth daily at bedtime. potassium chloride (K-TAB) 10 mEq tablet 20 mEq. hydroCHLOROthiazide (HYDRODIURIL, ESIDRIX) 25 mg tablet (Patient not taking: Reported on 03/25/2023) valsartan(DIOVAN 80 MG TAB) Take one(1) tablet daily. (Patient not taking: No sig reported) ALTACE 10 MG CAP Take by mouth. No current facility-administered medications on file prior to visit. PSYCHIATRIC HISTORY: The patient reported that her current mood is fine. She denied current symptoms of anxiety or depression. She endorsed suicidal ideation when she is upset but denied plan or intent. She reported no auditory/visual hallucinations. PSYCHOSOCIAL HISTORY: place: Born in [facility] and then moved to [facility] and then the [facility] in 1959. First language is Bengali. She learned Colombian in 1954. At home, she speaks in Colombian. Colombian is currently dominant. Education: Completed a high school degree and 1 year of college. There were no early attention/learning concerns. 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 Family: The patient is and has 4 children. Living situation: Lives alone. BEHAVIORAL OBSERVATIONS: The patient was accompanied by her daughter, Alexus, though she did not participate in the evaluation. Vision and hearing were adequate for testing purposes. Tremor was observed once during testing, possibly related to emotional factors. Speech was fluent with no observed word-finding problems or paraphasias in casual conversation. Thought processes were tangential and repetitive. Affect appeared distressed during testing. She became tearful during testing and requested the test session be discontinued. Efforts were made to discuss the purpose of testing and resume the testing, which was unsuccessful. Of note, the patient calmed down when discussing other topics. Toward the end of the discussion, we reviewed that this is an incomplete evaluation and she appeared confused and stated, Haven't I done everything you asked? She seemingly did not remember that she requested that the session be discontinued. Due to distress, the test session was discontinued and this evaluation is incomplete. Furthermore, of the testing that was completed, much of it was done in an unstandardized manner in attempt to calm and redirect her. Therefore, the available test results were interpreted with caution. COGNITIVE RESULTS: Premorbid abilities are estimated to fall in the average range based on education/occupational histories and word reading. Memory: Learning of a word list presented over repeated trials was moderately low (4,7,5 words encoded over the 3 learning trials, respectively). Delayed recall of the list was extremely low (0 words). Delayed recognition was extremely low (correctly identified 3/12 targets and incorrectly endorsed 1 false positive). Learning of designs presented over repeated trials was extremely low. Delayed recall was extremely low. Delayed recognition was moderately low. Of note, delayed recall/recognition paradigms were administered longer than standardized due to emotional distress. Attention/working memory: Overall digit repetition was low average; forward span was average, backward span was low average, and sequencing span was moderately low. Processing speed: Visual scanning was average. Executive functions: Divided attention was low average with 1 error. Visuospatial abilities: Judgment of line angles was average. IMPRESSIONS/SUMMARY Incomplete neuropsychological evaluation. Memory impairment is suspected. Laura Lopez is an 87-year-old female from [facility] with a history of vertigo and hypertension who presents with minimal cognitive concerns. The patient reported that she is functionally independent, though records indicate that there are inefficiencies in management of puller through and she no longer drives. She is also hesitant to allow family members assist with iADLs. The current evaluation was curtailed due to emotional distress and patient request. Results of neuropsychological testing may not be a valid indicator of her current cognitive functioning due to emotional distress at the time of testing and that the testing was not standardized. At face value, isolated tasks of attention, processing speed, divided attention, and visuospatial abilities are within age-based expectations. Memory testing was very poor for learning, retention, and recognition; however, the memory delay was longer than standardized. Overall, memory concerns are suspected based on her memory performances and behavioral observations (I.e. repetitious thoughts, poor recall for conversation from a few minutes prior). Oversight of daily activities is strongly encouraged for safety and differentia diagnosis (I.e. MCI vs. Dementia). A neurodegenerative condition cannot be ruled out. RECOMMENDATIONS Daily activities: To ensure safety, the patient's family is encouraged to monitor medication management, use of appliances, etc. Healthy aging practices to maintain cognitive functioning and promote overall wellness: Cognitive: Engage in cognitively stimulating activities that challenge and aid in learning (e.g., reading, puzzle games) while cultivating particular interests. Social: Reconnect and/or maintain relationships with family and friends by scheduling regular meeting times and planned activities around a common interest. Engage in meaningful community activities by volunteering or joining a community group or club. Physical: Regular physical exercise (e.g., walking, stretching), to the extent possible, can bolster cardiovascular health and may provide relief from or prevent worsening of symptoms of chronic pain, arthritis, and depression. Nutrition: Consume a balanced diet of nutrient-dense foods, while avoiding highly sweet, salty, and processed foods. Sleep: Establish a sleep routine waking and going to bed at similar times attaining 7-9 hours of sleep each night. The current evaluation was performed in the context of medical care and in response to specific internal referral question. It is not meant to constitute a legal or disability evaluation. This report is meant to be considered as only one part of the comprehensive examination. The results will be communicated to the referring physician via shared electronic medical record. Kesha Zazueta, Ph.D. Staff Neuropsychologist Neurobehavioral status exam/clinical interview by neuropsychologist: 1 hour Time completing additional tests, analyzing, interpreting and incorporating other available medical information, clinical data review, and report writing (by neuropsychologist): 2 hours Time testing and scoring (doctor of audiology): 1.5 hours Tests Administered: Brief Visuospatial Memory Test-Revised Rodarte Verbal Learning Test Judgment of Line Orientation [place] Making Test WAIS-IV Digit Span WRAT-IV Reading documented in this encounter [facility] 06-09-2023 Note HNO ID: [id number] Author: Jarek Urena RT(R) Service: ? Author Type: Technologist Type: Progress Notes Filed: 06/09/2023 11:33 AM Note Text: Radiology Service Progress Note PATIENT NAME: Laura Lopez DATE OF SERVICE: June 09, 2023 TIME: 11:32 AM PATIENT IDENTITY VERIFICATION COMPLETED USING TWO (2) IDENTIFIERS: Name and Date of confirmed by patient verbally and Name and Date of confirmed by identification band. FALL SCREENING: Has the patient had 2 falls in the last year or 1 fall with injury or currently using an Ambulatory Assistive Device (Walker, Cane, Wheelchair, Crutches, etc.)? Yes, Patient High Risk for Falls What interventions were put in place to prevent falls during this visit? [place] Risk Wristband Applied PATIENT GENDER DATA: Female. status: : No status: NO. PATIENT RELEVANT IMPLANT DATA REVIEWED: Yes RADIOLOGY DEPARTMENT: MR; Exam(s) Completed: Head: Routine Brain W/adni . PERIPHERAL IV DATA: Not applicable SIGNED BY: RT Lizzie(R) June 09, 2023 11:32 AM [facility] 06-09-2023 History of Present illness Narrative Radiology Service Progress Note PATIENT NAME: Laura Lopez DATE OF SERVICE: June 09, 2023 TIME: 11:32 AM PATIENT IDENTITY VERIFICATION COMPLETED USING TWO (2) IDENTIFIERS: Name and Date of confirmed by patient verbally and Name and Date of confirmed by identification band. FALL SCREENING: Has the patient had 2 falls in the last year or 1 fall with injury or currently using an Ambulatory Assistive Device (Walker, Cane, Wheelchair, Crutches, etc.)? Yes, Patient High Risk for Falls What interventions were put in place to prevent falls during this visit? [place] Risk Wristband Applied PATIENT GENDER DATA: Female. status: : No status: NO. PATIENT RELEVANT IMPLANT DATA REVIEWED: Yes RADIOLOGY DEPARTMENT: MR; Exam(s) Completed: Head: Routine Brain W/adni . PERIPHERAL IV DATA: Not applicable SIGNED BY: RT Lizzie(R) June 09, 2023 11:32 AM documented in this encounter [facility] 03-25-2023 Instructions Maral Nguyen MD - 03/25/2023 12:09 PM EDT Recommendation: Need regular blood pressure measurements Social work consult Encourage regular physical and mental activities. Try to establish a regular daily routine B12 supplements 1000 mcg daily MRI brain with volumetric analysis Neuropsychology testing. Patient [place] language is Bengali Speech pathology for cognitive training If patient is interested in pursuing evaluation with us, return after all testing Please call [phone] for scheduling documented in this encounter [facility] 03-25-2023 Note HNO ID: [id number] Author: Maral Nguyen MD Service: ? Author Type: Physician Type: Progress Notes Filed: 03/25/2023 1:30 PM Note Text: [facility], [facility] REASON FOR CONSULTATION: Cognitive concerns Patient Laura Lopez is self referred. My final recommendations will be communicated back to the patient by way of Electronic Medical record/Full Color Gamest or letter to patient via US mail. HISTORY OF PRESENT ILLNESS Laura Lopez is an 87 year old right handed female with 14 years of formal education, whom we are asked to see for evaluation of cognitive concerns. History was provided by patient and her daughter, Kesha. Additional reports including outside records, imagings were reviewed. PMH of HTN, vit D def She is from [place], came to the country in 1958. History of vertigo in March 26, 2022, with high blood pressure. Patient is not aware of memory problem, but her family and neighbors noticed that for at least a year, which has slowly progressed. She has become more momin. 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 Her family thinks it is too much work for her, even though her children tried to help. Her daughter sees her weekly, and every time she visited, her daughter threw out food in refrigerator that are rotten. She does not cook, her family brought her food. She has not been losing weight. She gets upset when her daughter asked her whether she was taking her medications. She does not have a schedule, she can sleep in, and that can affect the time she takes her medications. Patient thinks she does well, she lives by her own, and can take care of herself. She is not driving, has not driven for some time. Her son took her car for service, since . She said no one told her she is not getting her car back, when family has discussed with her a few times already. She goes to bed around 10:30pm she wakes up about 7am. She thinks she sleeps through. She feels well rested, and no naps. She does not think she dozes off. When she wakes up, she will have breakfast, and then walk outside. She may mow the lawn, or play piano. She does not have a daily regular routine other than cleaning the house. She was seen by her PCP, and had bedside testing. 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 Her daughter has not noticed any change. Her daughter has medical POA, son has financial POA, and he oversees her finances. Serological studies at outside facility 02/05/2023 Unremarkable CMP, glucose 134 A1C 6.5 Homocysteine 4.4 01/26/2023 CBC HgB 16 TSH 3.[address] 03/26/2022 (no images) FINDINGS: Normal soft tissue structures. Normal calvarium. There is mild cerebral atrophy with widening of the extra-axial spaces and ventricular dilatation. Normal white matter tracts of the cerebral hemispheres. There are small punctate calcifications of the basal ganglia which are seen in the aging brain as a normal variant. Normal brainstem. Normal cerebellum. There is no intracranial hemorrhage. There are no findings of an acute ischemic infarction. Atherosclerotic plaque formation of the cavernous portions of the internal carotid arteries bilaterally. Normal visualized paranasal sinuses. __ CT/Brain/Head without Contrast IMPRESSION: Chronic involutional changes of the brain. SYSTEMS REVIEW See HPI MEDICAL HISTORY: PAST MEDICAL HISTORY Diagnosis Date Essential hypertension, benign Tick bite SURGICAL HISTORY: PAST SURGICAL HISTORY Procedure Laterality Date PAST SURGICAL HISTORY OF hemmorhoidectomy PAST SURGICAL HISTORY OF uterine prolapse FAMILY HISTORY: FAMILY HISTORY Problem Relation Age of Onset Hypertension Father Stroke Father Cancer Brother leukemia SOCIAL HISTORY: Social History Tobacco Use Smoking status: Never Smokeless tobacco: Never Vaping Use Vaping Use: Never used Substance Use Topics Alcohol use: No Drug use: No Patient-Reported No flowsheet data found. Activities of Daily Living (ADL) No flowsheet data found. PROMIS-10 No flowsheet data found. PHQ-9 No flowsheet data found.(0-4) minimal depression (5-9) mild depression (10-14) moderate depression (15-19) moderately severe depression (20-27) severe depression Full History of PHQ-9 Scores No flowsheet data found. Sleep No flowsheet data found. No flowsheet data found. Caregiver-Reported No flowsheet data found. Dementia Severity Rating Scale (DSRS) No flowsheet data found. MEDICATIONS: Current Outpatient Medications Medication Sig Dispense Refill Galantamine Hydrobromide (RAZADYNE) 16 mg 24 hr capsule Take 16 mg by mouth once daily. POTASSIUM ORAL Take by mouth. Cholecalciferol, Vitamin D3, (VITAMIN D-3) 25 mcg (1,000 unit) chew Take by mouth. amLODIPin (more content not included)... [facility] 03-25-2023 Nurse Note Laura Lopez is a 87 year old year old right handed woman Accompanied by: daughter. Referral by: No referring provider defined for this encounter. 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 What would you like to accomplish with this visit today? I hope everything goes well. Vital Signs: BP 184/73 Pulse (!) 58 Wt 57.6 kg (127 lb) documented in this encounter [facility] 03-25-2023 History of Present illness Narrative Images from the original note were not included. NEUROLOGY CONSULTATION, [facility] REASON FOR CONSULTATION: Cognitive concerns Patient Laura Lopez is self referred. My final recommendations will be communicated back to the patient by way of Electronic Medical record/MyChart or letter to patient via US mail. HISTORY OF PRESENT ILLNESS Laura Lopez is an 87 year old right handed female with 14 years of formal education, whom we are asked to see for evaluation of cognitive concerns. History was provided by patient and her daughter, Kesha. Additional reports including outside records, imagings were reviewed. PMH of HTN, vit D def She is from [place], came to the country in 1959. History of vertigo in March 26, 2022, with high blood pressure. Patient is not aware of memory problem, but her family and neighbors noticed that for at least a year, which has slowly progressed. She has become more momin. 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 Her family thinks it is too much work for her, even though her children tried to help. Her daughter sees her weekly, and every time she visited, her daughter threw out food in refrigerator that are rotten. She does not cook, her family brought her food. She has not been losing weight. She gets upset when her daughter asked her whether she was taking her medications. She does not have a schedule, she can sleep in, and that can affect the time she takes her medications. Patient thinks she does well, she lives by her own, and can take care of herself. She is not driving, has not driven for some time. Her son took her car for service, since . She said no one told her she is not getting her car back, when family has discussed with her a few times already. She goes to bed around 10:30pm she wakes up about 7am. She thinks she sleeps through. She feels well rested, and no naps. She does not think she dozes off. When she wakes up, she will have breakfast, and then walk outside. She may mow the lawn, or play piano. She does not have a daily regular routine other than cleaning the house. She was seen by her PCP, and had bedside testing. 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 Her daughter has not noticed any change. Her daughter has medical POA, son has financial POA, and he oversees her finances. Serological studies at outside facility 02/05/2023 Unremarkable CMP, glucose 134 A1C 6.5 Homocysteine 4.4 01/26/2023 CBC HgB 16 TSH 3.[address] 03/26/2022 (no images) FINDINGS: Normal soft tissue structures. Normal calvarium. There is mild cerebral atrophy with widening of the extra-axial spaces and ventricular dilatation. Normal white matter tracts of the cerebral hemispheres. There are small punctate calcifications of the basal ganglia which are seen in the aging brain as a normal variant. Normal brainstem. Normal cerebellum. There is no intracranial hemorrhage. There are no findings of an acute ischemic infarction. Atherosclerotic plaque formation of the cavernous portions of the internal carotid arteries bilaterally. Normal visualized paranasal sinuses. __ CT/Brain/Head without Contrast IMPRESSION: Chronic involutional changes of the brain. SYSTEMS REVIEW See HPI MEDICAL HISTORY: PAST MEDICAL HISTORY Diagnosis Date Essential hypertension, benign Tick bite SURGICAL HISTORY: PAST SURGICAL HISTORY Procedure Laterality Date PAST SURGICAL HISTORY OF hemmorhoidectomy PAST SURGICAL HISTORY OF uterine prolapse FAMILY HISTORY: FAMILY HISTORY Problem Relation Age of Onset Hypertension Father Stroke Father Cancer Brother leukemia SOCIAL HISTORY: Social History Tobacco Use Smoking status: Never Smokeless tobacco: Never Vaping Use Vaping Use: Never used Substance Use Topics Alcohol use: No Drug use: No Patient-Reported No flowsheet data found. Activities of Daily Living (ADL) No flowsheet data found. PROMIS-10 No flowsheet data found. PHQ-9 No flowsheet data found.(0-4) minimal depression (5-9) mild depression (10-14) moderate depression (15-19) moderately severe depression (20-27) severe depression Full History of PHQ-9 Scores No flowsheet data found. Sleep No flowsheet data found. No flowsheet data found. Caregiver-Reported No flowsheet data found. Dementia Severity Rating Scale (DSRS) No flowsheet data found. MEDICATIONS: Current Outpatient Medications Medication Sig Dispense Refill Galantamine Hydrobromide (RAZADYNE) 16 mg 24 hr capsule Take 16 mg by mouth once daily. POTASSIUM ORAL Take by mouth. Cholecalciferol, Vitamin D3, (VITAMIN D-3) 25 mcg (1,000 unit) chew Take by mouth. amLODIPine (NORVASC) 5 mg tablet Take 5 mg by mouth daily at bedtime. potassium chloride (K-TAB) 10 mEq tablet 20 mEq. ALTACE 10 MG CAP Take by mouth. 0 hydroCHLOROthiazide (HYDRODIURIL, ESIDRIX) 25 mg tablet (Patient not taking: Reported on 03/25/2023) valsartan(DIOVAN 80 MG TAB) Take one(1) tablet daily. (Patient not taking: No sig reported) 0 No current facility-administered medications for this visit. ALLERGIES: ALLERGIES Allergen Reactions Seasonal Allergies Other: See Comments Sneezing,watering eyes,runny nose. VITAL SIGNS: BP 184/73 Pulse 58 Wt 127 lb (57.6kg) Denies headache and dizziness She does not know how high is her blood pressure PHYSICAL EXAMINATION GENERAL APPEARANCE: Patient did not appear to be in any acute distress, speech was fluent, followed commands without problems. NEUROLOGIC EXAM: There is no decrease in facial expression . Pupils equally round to light. Extraocular movements intact. Visual field full to confrontation. No nystagmus noted. Strength appeared to be good in both upper and lower extremities. No facial paresis. Sensation intact to light touch in face, arms and legs grossly. Tone is normal. No Romberg sign. Rapid alternating movements Intact. [id number] normal. Gait normal, arm swing full, turning normal. [place] Cognitive Assessment (MoCA) COGNITIVE TESTING: [place] cognitive assessment test version 7.1 was . Colombian is not her first language Visuospatial and executive function test was 2/5. (Can draw [place] and put in clock numbers) Naming 1/3, Attention /6, Language 0/3, Abstraction 2/2, Delayed recall 0/5, Orientation 4/6. On delayed recall, patient was able to repeat 2 and 4 words after each word trial, can recall 0 words without cue, 0 additional words with category cue, 1 with multiple choice cue. With letter fluency, patient could come up with 9 words within a minute. Semantic fluency 6 words within a minute. IMPRESSION/REPORT/PLAN: Cognitive dysfunction, NOS, with age and progressive nature cannot rule out neurodegenerative process High blood pressure, ? Control Lack of daily routine Laura Lopez is an 87 year old right handed female presented with progressive cognitive changes for last year. She is not driving, and her son manages her finances. It is unclear if she is taking her medications as directed, and her blood pressure is high today. She does not know her normal blood pressure. MoCA , with executive and visuospatial difficulties, attention in serial subtractions, delayed recall that did not improve with cues, and also decrease in fluency, both lexical and semantic. There is concern for frontal and temporal functions. Some of the testing might be affected by her [place] not being [place], but it does showed amnestic features, and probably comprehension and visuospatial impairments. With progressive decline in cognitive function, there is concern for a neurodegenerative process. But she also has no definite regular daily routine. We do not know how well her blood pressure management is. 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 She has been started on galantamine, and her daughter has not noticed any improvement. Recommendation: Need regular blood pressure measurements Social work consult Encourage regular physical and mental activities. Try to establish a regular daily routine B12 supplements 1000 mcg daily MRI brain with volumetric analysis Neuropsychology testing. Patient [place] language is Bengali Speech pathology for cognitive training If patient is interested in pursuing evaluation with us, return after all testing Please call [phone] for scheduling ADMINISTRATIVE BILLING I spent a total of 70 minutes on the date of the service which included preparing to see the patient, [id number] patient care, completing clinical documentation, obtaining and/or reviewing separately obtained history, performing a medically appropriate examination, counseling and educating the patient/family/caregiver, and ordering medications, tests, or procedures. This note was partially generated using voice recognition technology system, any errors noted are due to the technology and are unintentional. cc: No referring provider defined for this encounter. documented in this encounter [facility] 03-07-2023 Note HNO ID: [id number] Author: Mikala Almeida OD Service: ? Author Type: PERMASTONE APPLICATOR Type: Progress Notes Filed: 03/07/2023 2:59 PM Note Text: ASSESSMENT/PLAN: 1. Floaters, bilateral - ICD9: 379.24, ICD10: H43.393 (primary diagnosis) Vitreal floaters stable both eyes. Retinas flat and intact with no apparent retinal tear or traction. Discussed symptoms of retinal tear/detachment and if seen patient will return to clinic without delay. 2. Macular drusen, bilateral - ICD9: 362.57, ICD10: H35.363 Macular drusen noted. Continue to monitor. 3. Hyperopia, right - ICD9: 367.0, ICD10: H52.01 4. Regular astigmatism, bilateral - ICD9: 367.21, ICD10: H52.223 Continue to wear her glasses as desired. 5. Pseudophakia - ICD9: V43.1, ICD10: Z96.1 Posterior chamber intraocular lenses are well positioned and clear. Recommended yearly exams. Mikala Almeida, BESISE I have confirmed and edited as necessary the relevant ophthalmic history, ROS, and the neuro exam findings as obtained by others. [facility] 03-07-2023 Instructions Mikala Almeida OD - 03/07/2023 2:55 PM EDT ASSESSMENT/PLAN: 1. Floaters, bilateral - ICD9: 379.24, ICD10: H43.393 (primary diagnosis) Vitreal floaters stable both eyes. Retinas flat and intact with no apparent retinal tear or traction. Discussed symptoms of retinal tear/detachment and if seen patient will return to clinic without delay. 2. Macular drusen, bilateral - ICD9: 362.57, ICD10: H35.363 Macular drusen noted. Continue to monitor. 3. Hyperopia, right - ICD9: 367.0, ICD10: H52.01 4. Regular astigmatism, bilateral - ICD9: 367.21, ICD10: H52.223 Continue to wear her glasses as desired. 5. Pseudophakia - ICD9: V43.1, ICD10: Z96.1 Posterior chamber intraocular lenses are well positioned and clear. Recommended yearly exams. documented in this encounter [facility] 03-07-2023 History of Present illness Narrative ASSESSMENT/PLAN: 1. Floaters, bilateral - ICD9: 379.24, ICD10: H43.393 (primary diagnosis) Vitreal floaters stable both eyes. Retinas flat and intact with no apparent retinal tear or traction. Discussed symptoms of retinal tear/detachment and if seen patient will return to clinic without delay. 2. Macular drusen, bilateral - ICD9: 362.57, ICD10: H35.363 Macular drusen noted. Continue to monitor. 3. Hyperopia, right - ICD9: 367.0, ICD10: H52.01 4. Regular astigmatism, bilateral - ICD9: 367.21, ICD10: H52.223 Continue to wear her glasses as desired. 5. Pseudophakia - ICD9: V43.1, ICD10: Z96.1 Posterior chamber intraocular lenses are well positioned and clear. Recommended yearly exams. Mikala Almeida, OD I have confirmed and edited as necessary the relevant ophthalmic history, ROS, and the neuro exam findings as obtained by others. 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] Unspecified persistent mental disorders due to conditions classified elsewhere documented in this encounter [facility] note* Diagnosis Mild neurocognitive disorder- Primary Hypertension, unspecified type Agitation Other and unspecified special symptom or syndrome, not elsewhere classified documented in this encounter [facility] note* Diagnosis Dementia without behavioral disturbance (HCC)- Primary Dementia, unspecified, without behavioral disturbance 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] Unspecified persistent mental disorders due to conditions classified elsewhere documented in this encounter [facility] Medications Administered Section Inactive Administered Medications - up to 3 most recent administrations Medication Order MAR Action Action Date Dose Rate Site tropicamide 1 % 1 Drop (MYDRIACYL) 1 Drop, BOTH EYES, ONCE, 1 dose, On Tue03/07/23 at 1500, FOR THE EYE Given 03/07/2023 3:00 PM EDT 1 Drop Reason for Referral Specialty Diagnoses / Procedures Referred By Lola espinoza Referred To Contact [facility] Diagnoses Cognitive dysfunction Procedures CONSULT TO SPEECH THERAPY OFFICE/OUTPATIENT [facility] 60-74 MINUTES Maral Nguyen MD [address] [place] [address] [place] [place] [address] Referral ID Status Reason Start Date Expiration Date Visits Requested Visits Authorized [id number] Pending Review Auto-Generat ed Referral 03/25/2023 03/24/2024 1 1 Specialty Diagnoses / Procedures Referred By Lola espinoza Referred To Contact [facility] Diagnoses Cognitive dysfunction Procedures MRI 3D POST PROCESSING 3D RENDERING W/INTERP&POSTPROC DIFF WORK STATION Maral Nguyen MD [facility] [place] [id number] Mr Imaging Referral ID Status Reason Start Date Expiration Date Visits Requested Visits Authorized [id number] Authorized Auto-Generat ed Referral 03/25/2023 04/23/2024 1 1 Specialty Diagnoses / Procedures Referred By Contac t Referred To Contact MR IMAGING Diagnoses Cognitive impairment, mild, so stated Cognitive dysfunction Procedures MRI BRAIN W QUANT WO IVCON MRI BRAIN BRAIN STEM W/O CONTRAST MATERIAL Maral Nguyen MD [address] [place] [address] Mr Imaging Referral ID Status Reason Start Date Expiration Date Visits Requested Visits Authorized [id number] Authorized Auto-Generat ed Referral 03/25/2023 04/23/2024 1 1 Specialty Diagnoses / Procedures Referred By Contac t Referred To Contact MR IMAGING Diagnoses Cognitive dysfunction Procedures MRI 3D POST PROCESSING 3D RENDERING W/INTERP&POSTPROC DIFF WORK STATION Maral Nguyen MD [address] [place] [address] Mr Imaging [place] [address] Referral ID Status Reason Start Date Expiration Date V isits Requested Visits Authorized [id number] Closed Auto-Generate d Referral 03/25/2023 04/23/2024 1 1 Specialty Diagnoses / Procedures Referred By Contac t Referred To Contact MR IMAGING Diagnoses Cognitive impairment, mild, so stated Cognitive dysfunction Procedures MRI BRAIN W QUANT WO IVCON MRI BRAIN BRAIN STEM W/O CONTRAST MATERIAL Maral Nguyen MD [address] [place] [address] Mr Imaging [place] [address] Referral ID Status Reason Start Date Expiration Date V isits Requested Visits Authorized [id number] Closed Auto-Generate d Referral 03/25/2023 04/23/2024 1 1 Advance Directives No Advanced Directives Records FoundDocuments on File Type Date Recorded Patient [employer] Expl anation Advance Directive(s) 03/25/2023 12:22 PM Documents on File Type Date Recorded Patient [employer] Aid Expl anation Advance Directive(s) 03/25/2023 12:22 PM Summary Purpose Family History No Family History Records FoundNo Family History Records Found Additional Source Comments Source Comments (unrecognize d section and content) In the event this informatio n is protected by the Federal Confidentiality of Alcohol and Drug Abuse Patient Records regulations: The Federal rules restrict any use of the information to criminally investigate or prosecute any alcohol or drug abuse patient.[facility] the event this information is protected by the Federal Confidentiality of Alcohol and Drug Abuse Patient Records regulations: The Federal rules restrict any use of the information to criminally investigate or prosecute any alcohol or drug abuse patient.[facility] the event this information is protected by the Federal Confidentiality of Alcohol and Drug Abuse Patient Records regulations: The Federal rules restrict any use of the information to criminally investigate or prosecute any alcohol or drug abuse patient.[facility] the event this information is protected by the Federal Confidentiality of Alcohol and Drug Abuse Patient Records regulations: The Federal rules restrict any use of the information to criminally investigate or prosecute any alcohol or drug abuse patient.[facility] the event this information is protected by the Federal Confidentiality of Alcohol and Drug Abuse Patient Records regulations: The Federal rules restrict any use of the information to criminally investigate or prosecute any alcohol or drug abuse patient.[facility] the event this information is protected by the Federal Confidentiality of Alcohol and Drug Abuse Patient Records regulations: The Federal rules restrict any use of the information to criminally investigate or prosecute any alcohol or drug abuse patient.[facility] the event this information is protected by the Federal Confidentiality of Alcohol and Drug Abuse Patient Records regulations: The Federal rules restrict any use of the information to criminally investigate or prosecute any alcohol or drug abuse patient.[facility] Reason for Visit (unrecogniz ed section and content) Reason Comments New Patient Specialty Diagnoses / Procedures Referred By Contac t Referred To Contact MR IMAGING Diagnoses Cognitive impairment, mild, so stated Cognitive dysfunction Procedures MRI BRAIN W QUANT WO IVCON MRI BRAIN BRAIN STEM W/O CONTRAST MATERIAL Maral Nguyen MD [address] [place] [address] Mr Imaging [facility] Referral ID Status Reason Start Date Expiration Date V isits Requested Visits Authorized [id number] Closed Auto-Generate d Referral 03/25/2023 04/23/2024 1 1 Reason Comments Follow Up Reason Comments Appointment LV FOR PATIENT TO C ALL SO WE CAN GET HER SCHEDULED FOR A VIRTUAL FOLLOW UP WITH [facility] [place] Care Teams (unrecognized sec tion and content) [employer] [place] Supervisor Relationship Specialty Start Date End Date Smiley Pickett Chi [address] [place], [place] [id number] PCP - General Gerontology 02/21/23 [employer] [place] Supervisor Relationship Specialty Start Date End Date Smiley Pickett Chi [address] [place], [place] [address] PCP - General Gerontology 02/21/23 [place] Supervisor Relationship Specialty Start Date End Date Smiley Pickett Chi [address] [place], [place] [id number] PCP - General Gerontology 02/21/23 [place] Supervisor Relationship Specialty Start Date End Date Smiley Pickett Chi [address] [place], [place] [address] PCP - General Gerontology 02/21/23 INFORMATION SOURCE (unrecogn ized section and content) DATE CREATED AUTHOR AUTHOR'S SIMI ATION 07/04/2023 [facility] FOR RECORDS PERTAINING TO PATIENTS WHO ARE OR HAVE BEEN ENROLLED IN A CHEMICAL DEPENDENCY/SUBSTANCEABUSE PROGRAM, SOME INFORMATION MAY BE OMITTED. This clinical summary was aggregated from multiple sources. Caution should be exercised in using it in the provision of clinical care. This summary normalizes information from multiple sources, and as a consequence, information in this document may materially change the coding, format and clinical context of patient data. In addition, data may be omitted in some cases. CLINICAL DECISIONS SHOULD BE BASED ON THE PRIMARY CLINICAL RECORDS. [employer] [facility]. provides no warranty or guarantee of the accuracy or completeness of information in this document.
== END | disposition home or self-care (01) ==
PROVIDERS: PCP Family Medicine Geriatric Medicine; Visit Provider Family Medicine Geriatric Medicine
DX: I10 Essential (primary) hypertension (principal); E55.9 Vitamin D deficiency, unspecified
CPT/HCPCS: 36415; 80053; 82306; 84443; 85025

== ENCOUNTER → 2024-07-11 | Outpatient (CLI) | payer MEDICARE, BC, SELFPAY ==
[2024-07-11 16:50] LABS: Absolute Lymphocyte Count 2.56 X10^3/uL (0.83-4.51); Absolute Neutrophil Count 2.2 X10^3/uL (2.0-7.7); Basophil# 0.03 X10^3/uL; Basophil% 0.6 % (0-1); Eosinophil# 0.08 X10^3/uL; Eosinophils% 1.5 % (0-5); Hematocrit 41.7 % (37-47); Hemoglobin 13.9 g/dL (12.0-15.0); Lymphocyte # 2.56 X10^3/ul (0.83-4.51); Lymphocyte % 48.2 % (19-41); Mean Corp Hgb Conc 33.3 g/dL (32-36); Mean Corpuscular Hgb 30.3 pg (27.0-32.0); Mean Corpuscular Volume 90.8 fL (81-99); Mean Platelet Vol. 10.2 fl (6.2-12.0); Monocyte% 7.5 % (0-10); NRBC Flagged by Analyzer 0 % (0-5); Neutrophil # 2.23 X10^3/uL (2.7-7.7); Platelet Count 272 K/mm3 (150-450); RBC Distribution Width CV 13.6 % (11.6-14.6); RBC Distribution Width SD 45.1 fl (35.1-43.9); Red Blood Count 4.59 M/mm3 (4.2-5.4); White Blood Count 5.3 K/mm3 (4.4-11.0)
[2024-07-11 17:36] LABS: AST(SGOT) 19 U/L (15-37); Alanine Aminotransfer ALT/SGPT 25 U/L (13-56); Albumin, Serum 3.3 g/dL (3.2-5.0); Alkaline Phosphatase 85 U/L (45-117); Anion Gap 9 (5-15); BUN 23 mg/dL (7-18); BUN/Creat Ratio 27.5 RATIO (10-20); Calcium,Total 9.1 mg/dL (8.5-10.1); Chloride 108 mmol/L (98-107); Creatinine, Serum 0.84 mg/dL (0.55-1.02); EST Glomerular Filtration Rate 68 mL/min (>60); Est Glom Filt Rate - Afr Amer 82 mL/min (>60); Globulin 3.4 g/dL (2.2-4.2); Glucose 146 mg/dL (74-106); Potassium 4.3 mmol/L (3.5-5.1); Protein, Total 6.7 g/dL (6.4-8.2); Sodium Level 142 mmol/L (136-145)
[2024-07-11 17:37] LABS: Vitamin B12 248 pg/mL (211-911); Vitamin D,25 Hydroxy 26.5 ng/mL
[2024-07-12 10:52] LABS: Hemoglobin A1c 6.5 % (3.8-5.6)
== END | disposition home or self-care (01) ==
LOC: POLAB3 16:10
PROVIDERS: PCP Family Medicine Geriatric Medicine; Visit Provider Family Medicine Geriatric Medicine
DX: E53.8 Deficiency of other specified B group vitamins (principal); I10 Essential (primary) hypertension; E55.9 Vitamin D deficiency, unspecified; R73.9 Hyperglycemia, unspecified
CPT/HCPCS: 36415; 80053; 82306; 82607; 83036; 84443; 85025

== ENCOUNTER → 2024-07-16 | Outpatient (CLI) | payer MEDICARE, BC, SELFPAY ==
--- NOTE | 2024-07-16 12:30 | RAD_ITS ---
EXAM: XR ABDOMEN, 1 VIEW CLINICAL INDICATION: DIARRHEA TECHNIQUE: Frontal supine view of the abdomen/pelvis. COMPARISON: No relevant prior studies available. FINDINGS: GASTROINTESTINAL TRACT: No significant abnormality. Non-obstructive. No bowel or stomach distention. ORGANS: Normal as visualized. No organomegaly. No abnormal calcifications. BONES/JOINTS: Degenerative changes in the spine and visualized appendicular skeleton. SOFT TISSUES: No acute pathology. RAD/Abdomen Single View IMPRESSION: No acute findings. Electronically Signed: Mark Nelson DO at 21:14 EDT ,
== END | disposition home or self-care (01) ==
LOC: RAD 12:26
PROVIDERS: PCP Family Medicine Geriatric Medicine; Referring Provider Family Medicine Geriatric Medicine; Visit Provider Family Medicine Geriatric Medicine
DX: R19.7 Diarrhea, unspecified (principal)
CPT/HCPCS: 74018